=== PATIENT | male | born 1980 | race Caucasian/White ===

== ENCOUNTER 2018-06-19 09:48 | Inpatient (IN) | payer OTHER ==
[2018-06-19 10:37] VITALS: BMI 22.5
--- NOTE | 2018-06-19 10:39 | HP ---
COWS - Scale Resting Pulse: 0= [place] 80 or Below Sweatin= Chills/Flushing Restless Observation: 1= Difficult to Sit Still Pupil Size: 1= Pupils >than Normal Bone or Joint Aches: 2= Severe Diffuse Aches Runny Nose/ Eye Tearin= Runny Nose/Eyes GI Upset > 30mins: 2= Nausea/Diarrhea Tremor Observation: 2= Slight Tremor Visible Yawning Observation: 1= 1-2x During Session Anxiety or Irritability: 2=Irritable/Anxious Goose Flesh Skin: 0=Smooth Skin COWS Score: 14 CIWA Score - CIWA Score Nausea/Vomitin Muscle Tremors: 2 Anxiety: 2 Agitation: 2 Paroxysmal Sweats: 1-Minimal Palms Moist Orientation: 0-Oriented Tacttile Disturbances: 1-Very Mild Itch/Numbness Auditory Disturbances: 1-Very Mild Visual Disturbances: 1-Very Mild Sensitivity Headache: 2-Mild CIWA-Ar Total Score: 14 Admission ROS BHS - HPI Chief Complaint: i need help to stop using heroin and cocaine Allergies/Adverse Reactions: Allergies Allergy/AdvReac Type Severity Reaction Status Date / Time No Known Allergies Allergy Verified 06/19/18 10:35 History of Present Illness: this 38 years old male with heroin and cocaine dependence,seeking detox, withdrawal symptom,never been in detox before nicotine dependence longest period of sobriety 1 and a half year Exam Limitations: No Limitations - Ebola screening Have you traveled outside of the country in the last 21 days: No Have you had contact with anyone from an Ebola affected area: No Do you have a fever: No - Review of Systems Constitutional: Chills, Loss of Appetite, Malaise, Night Sweats, Changes in sleep, Weakness EENT: reports: Tearing, Nose Congestion Respiratory: reports: No Symptoms reported Cardiac: reports: No Symptoms Reported GI: reports: Diarrhea, Nausea, Vomiting, Abdominal cramping : reports: No Symptoms Reported Musculoskeletal: reports: Back Pain, Joint Pain, Muscle Pain, Joint Stiffness Integumentary: reports: Dryness Neuro: reports: Headache, Tremors Endocrine: reports: No Symptoms Reported Hematology: reports: No Symptoms Reported Psychiatric: reports: No Sypmtoms Reported, Judgement Intact, Mood/Affect Appropiate, Orientated x3 Patient History - Patient Medical History Hx Anemia: No Hx Asthma: No Hx Chronic Obstructive Pulmonary Disease (COPD): No Hx Cancer: No Hx Cardiac Disorders: No Hx Congestive Heart Failure: No Hx Hypertension: No Hx Hypercholesterolemia: No Hx Pacemaker: No HX Cerebrovascular Accident: No Hx Seizures: No Hx Dementia: No Hx Diabetes: No Hx Gastrointestinal Disorders: No Hx Liver Disease: No Hx Genitourinary Disorders: No Hx Sexually Transmitted Disorders: No Hx Renal Disease (ESRD): No Hx Thyroid Disease: No Hx Human Immunodeficiency Virus (HIV): No (2017 negative) Hx Hepatitis C: No Hx Depression: No Hx Suicide Attempt: No Hx Bipolar Disorder: No Hx Schizophrenia: No Other Medical History: no suicidal,no homical - Patient Surgical History Past Surgical History: No - PPD History Previous Implant?: Yes Documented Results: Negative w/o proof Implanted On Prior [facility] Admission?: No PPD to be Administered?: Yes - Smoking Cessation Smoking history: Current every day smoker Have you smoked in the past 12 months: Yes Cigars Per Day: 0 Hx Chewing Tobacco Use: No Initiated information on smoking cessation: Yes 'Breaking Loose' booklet given: 06/19/18 - Substance & Tx. History Hx Alcohol Use: No Hx Substance Use: Yes Substance Use Type: Cocaine, Heroin Hx Substance Use Treatment: No - Substances Abused Heroin Route: Inhalation Frequency: Daily Amount used: 5 bags Age of first use: 21 Date of Last Use: 06/18/18 Cocaine Route: Inhalation Frequency: Daily Amount used: 100$ Age of first use: 21 Date of Last Use: 06/15/18 Family Disease History - Family Disease History Family Disease History: Other: Sister (dsa) Admission Physical Exam BHS - Vital Signs Vital Signs: Vital Signs Temperature 96.4 F L 06/19/18 10:35 Pulse Rate 53 L 06/19/18 10:35 Respiratory Rate 16 06/19/18 10:35 Blood Pressure 123/78 06/19/18 10:35 O2 Sat by Pulse Oximetry (%) - Physical General Appearance: Yes: Moderate Distress, Tremorous, Irritable, Sweating, Anxious HEENTM: Yes: Normal ENT Inspection, JACKELIN, Pharynx Normal Respiratory: Yes: Within Normal Limits, Lungs Clear, Normal Breath Sounds Neck: Yes: Within Normal Limits, Supple, Trachea in good position Breast: Yes: Within Normal Limits Cardiology: Yes: Within Normal Limits, Regular Rhythm, Regular Rate, S1, S2 Abdominal: Yes: Normal Bowel Sounds, Non Tender, Soft Genitourinary: Yes: Within Normal Limits Back: Yes: Within Normal Limits, Muscle Spasm Musculoskeletal: Yes: Back pain, Joint Stiffness, Muscle Pain Extremities: Yes: Tremors Neurological: Yes: fuel quality tech II-XII NML intact, Fully Oriented, Alert, Motor Strength 5/5 Integumentary: Yes: Dry Lymphatic: Yes: Within Normal Limits - Diagnostic (1) Opioid dependence with withdrawal Current Visit: Yes Status: Acute (2) Cocaine dependence, uncomplicated Current Visit: Yes Status: Acute (3) Nicotine dependence Current Visit: Yes Status: Acute Cleared for Admission [facility] - Detox or Rehab [facility] Level of Care: Medically Managed Detox Regimen/Protocol: Methadone
[2018-06-19] MEDS ORDERED: IBUPROFEN 400 MG TABLET (FP) PO PRN (10:57)
[2018-06-19] MEDS ORDERED: LOPERAMIDE HCL 2 MG CAPSULE PO PRN (10:57)
[2018-06-19] MEDS ORDERED: P-EPHED 60MG/TRIPROLIDI 2.5MG TABLET PO PRN (10:57)
[2018-06-19] MEDS ORDERED: diazePAM 5 MG TABLET PO PRN (10:57)
[2018-06-19] MEDS ORDERED: MAG HYDROX/AL HYDROX/SIMETH 30 ML UNIT-DOSE CUP PO PRN (10:57)
[2018-06-19] MEDS ORDERED: guaiFENesin/D-METHORPHAN HB 10 ML UNIT-DOSE CUPS PO PRN (10:57)
[2018-06-19] MEDS ORDERED: MENTHOL/PHENOL 1 EACH UD MM PRN (10:57)
[2018-06-19] MEDS ORDERED: MAGNESIUM HYDROX 2400MG/30ML ORAL SUSPENSION 30 ML CUP PO PRN (10:57)
[2018-06-19] MEDS ORDERED: MAGNESIUM CITRATE 300 ML BOTTLE PO PRN (10:57)
[2018-06-19] MEDS ORDERED: ACETAMINOPHEN 325 MG TABLET (FP) PO PRN (10:57)
[2018-06-19] MEDS ORDERED: CYCLOBENZAPRINE HCL 10 MG TABLET (FP) PO PRN (10:59)
[2018-06-19] MEDS ORDERED: METHADONE HCL 10 MG TABLET (FOR DETOX USE ONLY) PO ONE ×2 (11:05→23:00)
[2018-06-19] MEDS: NICOTINE 21 MG/24 HOURS TOPICAL PATCH TD SCH (11:48)
[2018-06-19 20:40] LABS: URINE APPEARANCE CLEAR; URINE BILIRUBIN NEGATIVE (<2.0 mg/dL); URINE COLOR YELLOW; URINE GLUCOSE (UA) NEGATIVE (NEGATIVE); URINE KETONE NEGATIVE (NEGATIVE); URINE LEUK ESTERASE NEGATIVE (NEGATIVE); URINE NITRITE NEGATIVE (NEGATIVE); URINE PROTEIN NEGATIVE (NEGATIVE); URINE UROBILINOGEN NEGATIVE mg/dL (0.2-1.0)
[2018-06-19] MEDS ORDERED: MELATONIN 5 MG TABLETS PO PRN (22:00)
[2018-06-19] MEDS: cloNIDine HCL 0.1 MG TABLET PO SCH (22:04)
[2018-06-19] MEDS: THIAMINE HCL 100 MG TABLET (FP) PO SCH (22:04)
[2018-06-20] MEDS ORDERED: METHADONE HCL 10 MG TABLET (FOR DETOX USE ONLY) PO ONE (10:00)
[2018-06-20 10:16] LABS: HEMATOCRIT 48.5 % (35.4-49); HEMOGLOBIN 15.6 GM/dL (11.7-16.9); MCH 29.4 pg (25.7-33.7); MCHC 32.2 g/dl (32.0-35.9); MEAN CELL VOLUME 91.2 fl (80-96); PLATELET COUNT 210 K/MM3 (134-434); RBC 5.32 M/mm3 (4.00-5.60); RDW 13.3 % (11.9-15.9); WHITE BLOOD COUNT 6.8 K/mm3 (4.0-10.0)
--- NOTE | 2018-06-20 10:22 | PN ---
S Progress Note Note: addendum the ciwa score that documented on this patient on 06/18/18 at 10.33 is an error,belongs to other patient
[2018-06-20] MEDS: NICOTINE 21 MG/24 HOURS TOPICAL PATCH TD SCH (10:27)
[2018-06-20] MEDS: PRENATAL VITAMINS W/ FOLIC ACID TABLET (FP) PO SCH (10:27)
[2018-06-20] MEDS: cloNIDine HCL 0.1 MG TABLET PO SCH ×2 (10:28→22:10)
[2018-06-20 10:33] LABS: ALBUMIN 4.3 g/dl (3.4-5.0); ALK PHOS 70 U/L (45-117); ANION GAP 8 MMOL/L (8-16); BILIRUBIN,TOTAL 0.5 mg/dL (0.2-1); BLOOD UREA NITROGEN 16 mg/dL (7-18); CALCIUM 8.5 mg/dL (8.5-10.1); CHLORIDE 105 mmol/L (98-107); CO2 28 mmol/L (21-32); CREATININE 1.1 mg/dL (0.55-1.3); GLUCOSE,RANDOM 80 mg/dL (74-106); SGOT/AST 13 U/L (15-37); SGPT/ALT 29 U/L (13-61); SODIUM 141 mmol/L (136-145); TOT PROT 7.6 g/dl (6.4-8.2)
--- NOTE | 2018-06-20 11:20 | PN ---
[facility] CIWA - CIWA Score Nausea/Vomitin-No Nausea/No Vomiting Muscle Tremors: None Anxiety: 4-Mod. Anxious/Guarded Agitation: 4-Moderately Restless Paroxysmal Sweats: No Perspiration Orientation: 0-Oriented Tacttile Disturbances: 0-None Auditory Disturbances: 0-None Visual Disturbances: 0-None Headache: 0-None Present CIWA-Ar Total Score: 8 S COWS - Scale Resting Pulse: 0= [place] 80 or Below Sweatin=Flushed/Facial Moisture Restless Observation: 1= Difficult to Sit Still Pupil Size: 2= Moderately Dilated Bone or Joint Aches: 0= None Runny Nose/ Eye Tearin= None GI Upset > 30mins: 0= None Tremor Observation of Outstretched Hands: 0= None Yawning Observation: 0= None Anxiety or Irritability: 2=Irritable/Anxious Goose Flesh Skin: 0=Smooth Skin COWS Score: 7 S Progress Note (SOAP) Subjective: PATIENT ANXIOUS, PACING ON UNIT Objective: 06/20/18 11:18 Vital Signs Temperature 97.6 F 06/20/18 09:38 Pulse Rate 65 06/20/18 09:38 Respiratory Rate 18 06/20/18 09:38 Blood Pressure 100/66 06/20/18 09:38 O2 Sat by Pulse Oximetry (%) Laboratory Tests 06/19/18 06/20/18 06/20/18 19:30 05:45 05:45 WBC 6.8 RBC 5.32 Hgb 15.6 Hct 48.5 MCV 91.2 MCH 29.4 MCHC 32.2 RDW 13.3 Plt Count 210 MPV 11.0 Sodium 141 Potassium 4.0 Chloride 105 Carbon Dioxide 28 Anion Gap 8 BUN 16 Creatinine 1.1 Creat Clearance w eGFR > 60 Random Glucose 80 Calcium 8.5 Total Bilirubin 0.5 AST 13 L ALT 29 Alkaline Phosphatase 70 Total Protein 7.6 Albumin 4.3 Urine Color Yellow Urine Appearance Clear Urine pH 5.0 Ur Specific [place] 1.029 Urine Protein Negative Urine Glucose (UA) Negative Urine Ketones Negative Urine Blood Negative Urine Nitrite Negative Urine Bilirubin Negative Urine Urobilinogen Negative Ur Leukocyte Esterase Negative SKIN WARM, + FACIAL FLUSHING ALERT AND ORIENTED X 3 EXT NO EDEMA, FULL ROM ANXIOUS/GUARDED, +PACING ON UNIT Assessment: 06/20/18 11:20 WITHDRAWAL SX Plan: CONTINUE DETOX ENCOURAGE ORAL FLUIDS CONTINUE TO MONITOR CLINICALLY
--- NOTE | 2018-06-20 16:09 | EKG ---
Test Reason : Blood Pressure : / mmHG Vent. Rate : 057 BPM Atrial Rate : 057 BPM P-R Int : 124 ms QRS Dur : 106 ms QT Int : 444 ms P-R-T Axes : 005 067 045 degrees QTc Int : 432 ms SINUS BRADYCARDIA OTHERWISE NORMAL ECG NO PREVIOUS ECGS AVAILABLE Confirmed by MD ABELARDO, PRASANNA ([id number]) on 06/20/2018 4:09:14 PM Referred By: Confirmed By:PRASANNA ZHOU MD
[2018-06-20] MEDS: THIAMINE HCL 100 MG TABLET (FP) PO SCH (22:10)
[2018-06-21] MEDS ORDERED: METHADONE HCL 5 MG TABLET (FOR DETOX USE ONLY) PO ONE (10:00)
[2018-06-21] MEDS: PRENATAL VITAMINS W/ FOLIC ACID TABLET (FP) PO SCH (10:09)
[2018-06-21] MEDS: NICOTINE 21 MG/24 HOURS TOPICAL PATCH TD SCH (10:09)
[2018-06-21] MEDS: cloNIDine HCL 0.1 MG TABLET PO SCH ×2 (10:09→22:04)
[2018-06-21] MEDS: NICOTINE 14 MG/24 HOURS TOPICAL PATCH TD SCH (12:27)
--- NOTE | 2018-06-21 13:33 | PN ---
BHS COWS - Scale Resting Pulse: 0= [place] 80 or Below Sweatin= No chills or Flushing Restless Observation: 3= Extraneous Movement Pupil Size: 0= Normal to Room Light Bone or Joint Aches: 2= Severe Diffuse Aches Runny Nose/ Eye Tearin= Nasal Congestion GI Upset > 30mins: 1= Stomach Cramp Tremor Observation of Outstretched Hands: 2= Slight Tremor Visible Yawning Observation: 0= None Anxiety or Irritability: 2=Irritable/Anxious Goose Flesh Skin: 0=Smooth Skin COWS Score: 11 S Progress Note (SOAP) Subjective: Sweating, interrupted sleep Objective: 06/21/18 13:31 Last Vital Signs Temp Pulse Resp BP Pulse Ox 97.0 F L 71 18 105/71 06/21/18 13:30 06/21/18 13:30 06/21/18 13:30 06/21/18 13:30 Laboratory Tests 06/19/18 06/20/18 06/20/18 19:30 05:45 05:45 WBC 6.8 RBC 5.32 Hgb 15.6 Hct 48.5 MCV 91.2 MCH 29.4 MCHC 32.2 RDW 13.3 Plt Count 210 MPV 11.0 Sodium 141 Potassium 4.0 Chloride 105 Carbon Dioxide 28 Anion Gap 8 BUN 16 Creatinine 1.1 Creat Clearance w eGFR > 60 Random Glucose 80 Calcium 8.5 Total Bilirubin 0.5 AST 13 L ALT 29 Alkaline Phosphatase 70 Total Protein 7.6 Albumin 4.3 Urine Color Yellow Urine Appearance Clear Urine pH 5.0 Ur Specific [place] 1.029 Urine Protein Negative Urine Glucose (UA) Negative Urine Ketones Negative Urine Blood Negative Urine Nitrite Negative Urine Bilirubin Negative Urine Urobilinogen Negative Ur Leukocyte Esterase Negative RPR Titer 06/20/18 05:45 WBC RBC Hgb Hct MCV MCH MCHC RDW Plt Count MPV Sodium Potassium Chloride Carbon Dioxide Anion Gap BUN Creatinine Creat Clearance w eGFR Random Glucose Calcium Total Bilirubin AST ALT Alkaline Phosphatase Total Protein Albumin Urine Color Urine Appearance Urine pH Ur Specific [place] Urine Protein Urine Glucose (UA) Urine Ketones Urine Blood Urine Nitrite Urine Bilirubin Urine Urobilinogen Ur Leukocyte Esterase RPR Titer Nonreactive Labs reviewed Assessment: 06/21/18 13:33 Withdrawal symptoms Plan: Continue detox Encouraged PO water intake
[2018-06-21] MEDS: THIAMINE HCL 100 MG TABLET (FP) PO SCH (22:04)
[2018-06-22] MEDS ORDERED: METHADONE HCL 5 MG TABLET (FOR DETOX USE ONLY) PO ONE (10:00)
[2018-06-22] MEDS: PRENATAL VITAMINS W/ FOLIC ACID TABLET (FP) PO SCH (10:06)
[2018-06-22] MEDS: cloNIDine HCL 0.1 MG TABLET PO SCH ×2 (10:07→22:03)
[2018-06-22] MEDS: NICOTINE 14 MG/24 HOURS TOPICAL PATCH TD SCH (10:09)
--- NOTE | 2018-06-22 10:41 | PN ---
[facility] Progress Note Note: PATIENT CONTINUES WITH DETOX REGIMEN. PATIENT C/O INTERRUPTED SLEEP. PULLED BLANKET OVER FACE DURING EVALUATION. Laboratory Tests 06/19/18 06/20/18 06/20/18 19:30 05:45 05:45 WBC 6.8 RBC 5.32 Hgb 15.6 Hct 48.5 MCV 91.2 MCH 29.4 MCHC 32.2 RDW 13.3 Plt Count 210 MPV 11.0 Sodium 141 Potassium 4.0 Chloride 105 Carbon Dioxide 28 Anion Gap 8 BUN 16 Creatinine 1.1 Creat Clearance w eGFR > 60 Random Glucose 80 Calcium 8.5 Total Bilirubin 0.5 AST 13 L ALT 29 Alkaline Phosphatase 70 Total Protein 7.6 Albumin 4.3 Urine Color Yellow Urine Appearance Clear Urine pH 5.0 Ur Specific [place] 1.029 Urine Protein Negative Urine Glucose (UA) Negative Urine Ketones Negative Urine Blood Negative Urine Nitrite Negative Urine Bilirubin Negative Urine Urobilinogen Negative Ur Leukocyte Esterase Negative RPR Titer 06/20/18 05:45 WBC RBC Hgb Hct MCV MCH MCHC RDW Plt Count MPV Sodium Potassium Chloride Carbon Dioxide Anion Gap BUN Creatinine Creat Clearance w eGFR Random Glucose Calcium Total Bilirubin AST ALT Alkaline Phosphatase Total Protein Albumin Urine Color Urine Appearance Urine pH Ur Specific [place] Urine Protein Urine Glucose (UA) Urine Ketones Urine Blood Urine Nitrite Urine Bilirubin Urine Urobilinogen Ur Leukocyte Esterase RPR Titer Nonreactive Vital Signs Temperature 98.5 F 06/22/18 09:17 Pulse Rate 63 06/22/18 09:17 Respiratory Rate 18 06/22/18 09:17 Blood Pressure 105/68 06/22/18 09:17 O2 Sat by Pulse Oximetry (%) ALERT AND ORIENTED X 3 AMB AD [place] IRRITABLE AND GUARDED A/P WITHDRAWAL SX CONTINUE DETOX ORDERED ENCOURAGE ORAL FLUIDS CONTINUE TO MONITOR CLINICALLY
[2018-06-22] MEDS: THIAMINE HCL 100 MG TABLET (FP) PO SCH (22:01)
[2018-06-23] MEDS: cloNIDine HCL 0.1 MG TABLET PO SCH ×2 (09:32→22:30)
[2018-06-23] MEDS: PRENATAL VITAMINS W/ FOLIC ACID TABLET (FP) PO SCH (09:32)
[2018-06-23] MEDS ORDERED: METHADONE HCL 10 MG TABLET (FOR DETOX USE ONLY) PO ONE (10:00)
[2018-06-23] MEDS: NICOTINE 14 MG/24 HOURS TOPICAL PATCH TD SCH (10:01)
--- NOTE | 2018-06-23 12:04 | PN ---
BHS Progress Note (SOAP) Subjective: Interrupted sleep Objective: 06/23/18 12:02 Last Vital Signs Temp Pulse Resp BP Pulse Ox 97.1 F L 62 19 109/67 06/23/18 09:36 06/23/18 09:36 06/23/18 09:36 06/23/18 09:36 Laboratory Tests 06/19/18 06/20/18 06/20/18 19:30 05:45 05:45 WBC 6.8 RBC 5.32 Hgb 15.6 Hct 48.5 MCV 91.2 MCH 29.4 MCHC 32.2 RDW 13.3 Plt Count 210 MPV 11.0 Sodium 141 Potassium 4.0 Chloride 105 Carbon Dioxide 28 Anion Gap 8 BUN 16 Creatinine 1.1 Creat Clearance w eGFR > 60 Random Glucose 80 Calcium 8.5 Total Bilirubin 0.5 AST 13 L ALT 29 Alkaline Phosphatase 70 Total Protein 7.6 Albumin 4.3 Urine Color Yellow Urine Appearance Clear Urine pH 5.0 Ur Specific [place] 1.029 Urine Protein Negative Urine Glucose (UA) Negative Urine Ketones Negative Urine Blood Negative Urine Nitrite Negative Urine Bilirubin Negative Urine Urobilinogen Negative Ur Leukocyte Esterase Negative RPR Titer 06/20/18 05:45 WBC RBC Hgb Hct MCV MCH MCHC RDW Plt Count MPV Sodium Potassium Chloride Carbon Dioxide Anion Gap BUN Creatinine Creat Clearance w eGFR Random Glucose Calcium Total Bilirubin AST ALT Alkaline Phosphatase Total Protein Albumin Urine Color Urine Appearance Urine pH Ur Specific [place] Urine Protein Urine Glucose (UA) Urine Ketones Urine Blood Urine Nitrite Urine Bilirubin Urine Urobilinogen Ur Leukocyte Esterase RPR Titer Nonreactive Labs reviewed Assessment: 06/23/18 12:03 Withdrawal symptoms Plan: Continue detox Encouraged PO water intake
[2018-06-23] MEDS ORDERED: hydrOXYzine HCL 25 MG TABLET (FP) PO PRN (13:04)
[2018-06-23] MEDS: THIAMINE HCL 100 MG TABLET (FP) PO SCH (22:30)
[2018-06-24] MEDS ORDERED: METHADONE HCL 5 MG TABLET (FOR DETOX USE ONLY) PO ONE (06:00)
[2018-06-24 06:14] VITALS: BP 99/57; PULSE 63; TEMP 97.1
--- NOTE | 2018-06-24 11:06 | DS ---
[facility] Detox Discharge Summary Admission Date: 06/19/18 Discharge Date: 06/24/18 - History Present History: Cocaine Dependence, Opioid Dependence - Physical Exam Results Vital Signs: Vital Signs Temperature 97.1 F L 06/24/18 06:13 Pulse Rate 63 06/24/18 06:13 Respiratory Rate 18 06/24/18 06:30 Blood Pressure 99/57 L 06/24/18 06:13 O2 Sat by Pulse Oximetry (%) - Treatment Hospital Course: Detox Protocol Followed, Detoxed Safely, Responded well, Discharged Condition Good, Rehab Referral Accepted Patient has Accepted a Rehab Referral to: [facility] - Diagnosis (1) Opioid dependence with withdrawal Status: Acute (2) Cocaine dependence, uncomplicated Status: Chronic (3) Nicotine dependence Status: Chronic Qualifiers: Nicotine product type: cigarettes - AMA Did Patient Leave Against Medical Advice: No
== END 2018-06-24 09:06 | disposition home or self-care (01) | DRG 773 ==
LOC: YASAS 09:48 → EDBD 09:48 → Y3N 11:01
PROC: HZ2ZZZZ Detoxification Services for Substance Abuse Treatment (ICD-10-PCS; principal; 2018-06-19)
DX: F11.23 Opioid dependence with withdrawal (principal); F14.20 Cocaine dependence, uncomplicated; F17.210 Nicotine dependence, cigarettes, uncomplicated
CPT/HCPCS: 36415; 80053; 81003; 85027; 86593; 93005; 93010; J0735

== ENCOUNTER 2018-09-22 14:45 | Inpatient (IN) | payer OTHER ==
[2018-09-22 15:33] VITALS: BMI 24.4
--- NOTE | 2018-09-22 18:43 | HP ---
COWS - Scale Resting Pulse: 1= [place] 81-100 Sweatin= Chills/Flushing Restless Observation: 3= Extraneous Movement Pupil Size: 1= Pupils >than Normal Bone or Joint Aches: 1= Mild Discomfort Runny Nose/ Eye Tearin= Nasal Congestion GI Upset > 30mins: 1= Stomach Cramp Tremor Observation: 0= None Yawning Observation: 1= 1-2x During Session Anxiety or Irritability: 1=Feels Anxious/Irritable Goose Flesh Skin: 3=Piloerection COWS Score: 14 CIWA Score - Admission Criteria [facility] Guidelines: Admission for Medically Managed Detox: Requires at least one of the followin. CIWA greater than 12 2. Seizures within the past 24 hours 3. Delirium tremens within the past 24 hours 4. Hallucinations within the past 24 hours 5. Acute intervention needed for co occurring medical disorder 6. Acute intervention needed for co occurring psychiatric disorder 7. Severe withdrawal that cannot be handled at a lower level of care (continued vomiting, continued diarrhea, abnormal vital signs) requiring intravenous medication and/or fluids 8. Admission ROS S - HPI Chief Complaint: heroin detox 38 yo with no medical or mental problems here for detox from heroin. heroin- 5-6 bags/day, sniffing, last here 3 months- relapsed after a month smoking 1 ppd ISTOP- neg for controlled substances Utox: Fen, Mop Allergies/Adverse Reactions: Allergies Allergy/AdvReac Type Severity Reaction Status Date / Time No Known Allergies Allergy Verified 09/22/18 17:24 - Ebola screening Have you traveled outside of the country in the last 21 days: No Have you been sick,other than usual withdrawal symptoms: No Do you have a fever: No - Review of Systems Constitutional: No Symptoms Reported EENT: reports: No Symptoms Reported Respiratory: reports: No Symptoms reported Cardiac: reports: No Symptoms Reported GI: reports: No Symptoms Reported : reports: No Symptoms Reported Musculoskeletal: reports: No Symptoms Reported Integumentary: reports: No Symptoms Reported Neuro: reports: No Symptoms reported Endocrine: reports: No Symptoms Reported Hematology: reports: No Symptoms Reported Psychiatric: reports: No Sypmtoms Reported Other Systems: Reviewed and Negative Patient History - Patient Medical History Hx Anemia: No Hx Asthma: No Hx Chronic Obstructive Pulmonary Disease (COPD): No Hx Cancer: No Hx Cardiac Disorders: No Hx Congestive Heart Failure: No Hx Hypertension: No Hx Hypercholesterolemia: No Hx Pacemaker: No HX Cerebrovascular Accident: No Hx Seizures: No Hx Dementia: No Hx Diabetes: No Hx Gastrointestinal Disorders: No Hx Liver Disease: No Hx Genitourinary Disorders: No Hx Sexually Transmitted Disorders: No Hx Renal Disease (ESRD): No Hx Thyroid Disease: No Hx Human Immunodeficiency Virus (HIV): No (2017 negative) Hx Hepatitis C: No Hx Depression: No Hx Suicide Attempt: No Hx Bipolar Disorder: No Hx Schizophrenia: No - Patient Surgical History Past Surgical History: No Hx Neurologic Surgery: No Hx Cataract Extraction: No Hx Cardiac Surgery: No Hx Lung Surgery: No Hx Breast Surgery: No Hx Breast Biopsy: No Hx Abdominal Surgery: No Hx Appendectomy: No Hx Cholecystectomy: No Hx Genitourinary Surgery: No Hx Section: No Hx Orthopedic Surgery: No Other Surgical History: deviated septum repair 2014, tubal ottotic drainage 2014 Anesthesia Reaction: No - PPD History Previous Implant?: Yes Documented Results: Negative w/proof Implanted On Prior [facility] Admission?: Yes Date: 06/21/18 Results: 0 mm - Smoking Cessation Smoking history: Current every day smoker Have you smoked in the past 12 months: Yes Aproximately how many cigarettes per day: 20 Cigars Per Day: 0 Hx Chewing Tobacco Use: No Initiated information on smoking cessation: Yes 'Breaking Loose' booklet given: 09/22/18 - Substance & Tx. History Hx Alcohol Use: No Hx Substance Use: Yes Substance Use Type: Heroin Hx Substance Use Treatment: Yes - Substances Abused Heroin Route: Inhalation Frequency: Daily Amount used: 5-6 bags Age of first use: 21 Date of Last Use: 09/21/18 Family Disease History - Family Disease History Family Disease History: Other: Father (alcohol, crack), Sister (heroin use) Admission Physical Exam BHS - Vital Signs Vital Signs: Vital Signs - 24 hr 09/22/18 14:59 Temperature 96.0 F L Pulse Rate 67 Respiratory 18 Rate Blood Pressure 126/84 - Physical General Appearance: Yes: Within Normal Limits, No Apparent Distress, Nourished, Appropriately Dressed HEENTM: Yes: Within Normal Limits Respiratory: Yes: Within Normal Limits Neck: Yes: Within Normal Limits Cardiology: Yes: Within Normal Limits Abdominal: Yes: Within Normal Limits Back: Yes: Within Normal Limits Musculoskeletal: Yes: Within Normal Limits Extremities: Yes: Within Normal Limits Neurological: Yes: Within Normal Limits Integumentary: Yes: Within Normal Limits Lymphatic: Yes: Within Normal Limits - Diagnostic (1) Opioid dependence with withdrawal Current Visit: No Status: Acute (2) Nicotine dependence Current Visit: No Status: Chronic Qualifiers: Nicotine product type: cigarettes BHS Breath Alcohol Content Breath Alcohol Content: 0 Urine Drug Screen - Results Drug Screen Negative: No Urine Drug Screen Results: OPI-Opiates, FEN-Fentanyl
[2018-09-22] MEDS ORDERED: MAG HYDROX/AL HYDROX/SIMETH 30 ML UNIT-DOSE CUP PO PRN (18:44)
[2018-09-22] MEDS ORDERED: P-EPHED 60MG/TRIPROLIDI 2.5MG TABLET PO PRN (18:44)
[2018-09-22] MEDS ORDERED: LOPERAMIDE HCL 2 MG CAPSULE PO PRN (18:44)
[2018-09-22] MEDS ORDERED: MAGNESIUM CITRATE 300 ML BOTTLE PO PRN (18:44)
[2018-09-22] MEDS ORDERED: IBUPROFEN 400 MG TABLET (FP) PO PRN (18:44)
[2018-09-22] MEDS ORDERED: MAGNESIUM HYDROX 2400MG/30ML ORAL SUSPENSION 30 ML CUP PO PRN (18:44)
[2018-09-22] MEDS ORDERED: ACETAMINOPHEN 325 MG TABLET (FP) PO PRN (18:44)
[2018-09-22] MEDS ORDERED: guaiFENesin/D-METHORPHAN HB 10 ML UNIT-DOSE CUPS PO PRN (18:44)
[2018-09-22] MEDS ORDERED: MENTHOL/PHENOL 1 EACH UD MM PRN (18:44)
[2018-09-22] MEDS ORDERED: METHADONE HCL 10 MG TABLET (FOR DETOX USE ONLY) PO ONE ×2 (20:00→23:00)
[2018-09-22] MEDS: THIAMINE HCL 100 MG TABLET (FP) PO SCH (22:08)
[2018-09-22] MEDS: diazePAM 5 MG TABLET PO PRN (22:30)
[2018-09-23] MEDS ORDERED: METHADONE HCL 10 MG TABLET (FOR DETOX USE ONLY) PO ONE (10:00)
[2018-09-23] MEDS: PRENATAL VITAMINS W/ FOLIC ACID TABLET (FP) PO SCH (10:13)
[2018-09-23] MEDS: diazePAM 5 MG TABLET PO PRN ×2 (10:13→21:02)
[2018-09-23] MEDS: NICOTINE 14 MG/24 HOURS TOPICAL PATCH TD SCH (10:14)
[2018-09-23] MEDS: cloNIDine HCL 0.1 MG TABLET PO PRN (10:14)
[2018-09-23 10:34] LABS: HEMATOCRIT 43.6 % (35.4-49); HEMOGLOBIN 14.6 GM/dL (11.7-16.9); MCH 30.2 pg (25.7-33.7); MCHC 33.4 g/dl (32.0-35.9); MEAN CELL VOLUME 90.5 fl (80-96); MEAN PLT VOLUME 10.2 fl (7.5-11.1); PLATELET COUNT 216 K/MM3 (134-434); RBC 4.82 M/mm3 (4.00-5.60); RDW 13.5 % (11.9-15.9); WHITE BLOOD COUNT 5.7 K/mm3 (4.0-10.0)
[2018-09-23 11:12] LABS: ALBUMIN 4.1 g/dl (3.4-5.0); ALK PHOS 63 U/L (45-117); ANION GAP 7 MMOL/L (8-16); BILIRUBIN,TOTAL 0.7 mg/dL (0.2-1); BLOOD UREA NITROGEN 14 mg/dL (7-18); CHLORIDE 104 mmol/L (98-107); CO2 30 mmol/L (21-32); GLUCOSE,RANDOM 75 mg/dL (74-106); POTASSIUM 4.2 mmol/L (3.5-5.1); SGOT/AST 12 U/L (15-37); SGPT/ALT 26 U/L (13-61); SODIUM 141 mmol/L (136-145)
[2018-09-23 13:16] LABS: URINE APPEARANCE CLEAR; URINE BILIRUBIN NEGATIVE (<2.0 mg/dL); URINE COLOR YELLOW; URINE GLUCOSE (UA) NEGATIVE (NEGATIVE); URINE KETONE NEGATIVE (NEGATIVE); URINE LEUK ESTERASE NEGATIVE (NEGATIVE); URINE NITRITE NEGATIVE (NEGATIVE); URINE PROTEIN NEGATIVE (NEGATIVE); URINE UROBILINOGEN NEGATIVE mg/dL (0.2-1.0)
--- NOTE | 2018-09-23 13:59 | PN ---
BHS COWS - Scale Resting Pulse: 0= [place] 80 or Below Sweatin=Flushed/Facial Moisture Restless Observation: 1= Difficult to Sit Still Pupil Size: 0= Normal to Room Light Bone or Joint Aches: 2= Severe Diffuse Aches Runny Nose/ Eye Tearin= Runny Nose/Eyes GI Upset > 30mins: 2= Nausea/Diarrhea Tremor Observation of Outstretched Hands: 2= Slight Tremor Visible Yawning Observation: 0= None Anxiety or Irritability: 2=Irritable/Anxious Goose Flesh Skin: 0=Smooth Skin COWS Score: 13 BHS Progress Note (SOAP) Subjective: Anxiety, irritability, interrupted sleep Objective: 09/23/18 13:58 Vital Signs 09/23/18 09/23/18 06:51 09:29 Temperature 97.5 F L 96.3 F L Pulse Rate 60 77 Respiratory 18 18 Rate Blood Pressure 102/51 L 109/59 L Laboratory Last Values WBC 5.7 K/mm3 (4.0-10.0) 09/23/18 08:00 RBC 4.82 M/mm3 (4.00-5.60) 09/23/18 08:00 Hgb 14.6 GM/dL (11.7-16.9) 09/23/18 08:00 Hct 43.6 % (35.4-49) 09/23/18 08:00 MCV 90.5 fl (80-96) 09/23/18 08:00 MCH 30.2 pg (25.7-33.7) 09/23/18 08:00 MCHC 33.4 g/dl (32.0-35.9) 09/23/18 08:00 RDW 13.5 % (11.9-15.9) 09/23/18 08:00 Plt Count 216 K/MM3 (134-434) 09/23/18 08:00 MPV 10.2 fl (7.5-11.1) 09/23/18 08:00 Sodium 141 mmol/L (136-145) 09/23/18 08:00 Potassium 4.2 mmol/L (3.5-5.1) 09/23/18 08:00 Chloride 104 mmol/L (98-107) 09/23/18 08:00 Carbon Dioxide 30 mmol/L (21-32) 09/23/18 08:00 Anion Gap 7 MMOL/L (8-16) L 09/23/18 08:00 BUN 14 mg/dL (7-18) 09/23/18 08:00 Creatinine 1.0 mg/dL (0.55-1.3) 09/23/18 08:00 Creat Clearance w eGFR > 60 (>60) 09/23/18 08:00 Random Glucose 75 mg/dL (74-106) 09/23/18 08:00 Calcium 9.0 mg/dL (8.5-10.1) 09/23/18 08:00 Total Bilirubin 0.7 mg/dL (0.2-1) 09/23/18 08:00 AST 12 U/L (15-37) L 09/23/18 08:00 ALT 26 U/L (13-61) 09/23/18 08:00 Alkaline Phosphatase 63 U/L (45-117) 09/23/18 08:00 Total Protein 7.0 g/dl (6.4-8.2) 09/23/18 08:00 Albumin 4.1 g/dl (3.4-5.0) 09/23/18 08:00 Urine Color Yellow 09/23/18 09:20 Urine Appearance Clear 09/23/18 09:20 Urine pH 7.0 (5.0-8.0) D 09/23/18 09:20 Ur Specific [place] 1.023 (1.010-1.035) 09/23/18 09:20 Urine Protein Negative (NEGATIVE) 09/23/18 09:20 Urine Glucose (UA) Negative (NEGATIVE) 09/23/18 09:20 Urine Ketones Negative (NEGATIVE) 09/23/18 09:20 Urine Blood Negative (NEGATIVE) 09/23/18 09:20 Urine Nitrite Negative (NEGATIVE) 09/23/18 09:20 Urine Bilirubin Negative (<2.0 mg/dL) 09/23/18 09:20 Urine Urobilinogen Negative mg/dL (0.2-1.0) 09/23/18 09:20 Ur Leukocyte Esterase Negative (NEGATIVE) 09/23/18 09:20 Labs noted Assessment: 09/23/18 13:59 Withdrawal sx Plan: Continue detox
[2018-09-23] MEDS: hydrOXYzine PAMOATE 50 MG CAPSULE (FP) PO PRN (22:20)
[2018-09-23] MEDS: MELATONIN 5 MG TABLETS PO PRN (22:20)
[2018-09-23] MEDS: THIAMINE HCL 100 MG TABLET (FP) PO SCH (22:20)
[2018-09-24] MEDS ORDERED: METHADONE HCL 5 MG TABLET (FOR DETOX USE ONLY) PO ONE (10:00)
[2018-09-24] MEDS: cloNIDine HCL 0.1 MG TABLET PO PRN (10:04)
[2018-09-24] MEDS: diazePAM 5 MG TABLET PO PRN ×3 (10:04→22:45)
[2018-09-24] MEDS: PRENATAL VITAMINS W/ FOLIC ACID TABLET (FP) PO SCH (10:04)
[2018-09-24] MEDS: NICOTINE 14 MG/24 HOURS TOPICAL PATCH TD SCH (10:05)
--- NOTE | 2018-09-24 12:41 | PN ---
BHS COWS - Scale Resting Pulse: 1= [place] 81-100 Sweatin= No chills or Flushing Restless Observation: 0= Sits Still Pupil Size: 0= Normal to Room Light Bone or Joint Aches: 1= Mild Discomfort Runny Nose/ Eye Tearin= None GI Upset > 30mins: 1= Stomach Cramp Tremor Observation of Outstretched Hands: 0= None Yawning Observation: 0= None Anxiety or Irritability: 1=Feels Anxious/Irritable Goose Flesh Skin: 0=Smooth Skin COWS Score: 4 BHS Progress Note (SOAP) Subjective: pt states feeling fine today- medications are fine O: Vital Signs - 24 hr 09/23/18 09/23/18 09/23/18 13:59 17:44 22:23 Temperature 97.7 F 97.5 F L 97.6 F Pulse Rate 64 72 65 Respiratory 18 20 18 Rate Blood Pressure 96/56 L 95/63 105/59 L 09/24/18 09/24/18 09/24/18 00:30 03:30 07:27 Temperature 97.9 F Pulse Rate 62 Respiratory 18 16 18 Rate Blood Pressure 104/43 L 09/24/18 09:38 Temperature 97.7 F Pulse Rate 74 Respiratory 16 Rate Blood Pressure 134/84 Laboratory Tests 09/23/18 09/23/18 09/23/18 08:00 08:00 08:00 WBC 5.7 RBC 4.82 Hgb 14.6 Hct 43.6 MCV 90.5 MCH 30.2 MCHC 33.4 RDW 13.5 Plt Count 216 MPV 10.2 Sodium 141 Potassium 4.2 Chloride 104 Carbon Dioxide 30 Anion Gap 7 L BUN 14 Creatinine 1.0 Creat Clearance w eGFR > 60 Random Glucose 75 Calcium 9.0 Total Bilirubin 0.7 AST 12 L ALT 26 Alkaline Phosphatase 63 Total Protein 7.0 Albumin 4.1 Urine Color Urine Appearance Urine pH Ur Specific [place] Urine Protein Urine Glucose (UA) Urine Ketones Urine Blood Urine Nitrite Urine Bilirubin Urine Urobilinogen Ur Leukocyte Esterase RPR Titer Nonreactive 09/23/18 09:20 WBC RBC Hgb Hct MCV MCH MCHC RDW Plt Count MPV Sodium Potassium Chloride Carbon Dioxide Anion Gap BUN Creatinine Creat Clearance w eGFR Random Glucose Calcium Total Bilirubin AST ALT Alkaline Phosphatase Total Protein Albumin Urine Color Yellow Urine Appearance Clear Urine pH 7.0 D Ur Specific [place] 1.023 Urine Protein Negative Urine Glucose (UA) Negative Urine Ketones Negative Urine Blood Negative Urine Nitrite Negative Urine Bilirubin Negative Urine Urobilinogen Negative Ur Leukocyte Esterase Negative RPR Titer a/p: continue opioid detox protocol- pt tolerating well. d/w pt options for longterm Rx.
[2018-09-24] MEDS: THIAMINE HCL 100 MG TABLET (FP) PO SCH (22:45)
[2018-09-24] MEDS: hydrOXYzine PAMOATE 50 MG CAPSULE (FP) PO PRN (22:45)
[2018-09-25] MEDS ORDERED: METHADONE HCL 5 MG TABLET (FOR DETOX USE ONLY) PO ONE (10:00)
[2018-09-25] MEDS: PRENATAL VITAMINS W/ FOLIC ACID TABLET (FP) PO SCH (10:04)
[2018-09-25] MEDS: NICOTINE 14 MG/24 HOURS TOPICAL PATCH TD SCH (10:04)
[2018-09-25] MEDS ORDERED: SODIUM CHLORIDE NASAL SPRAY 44 ML BOTTLE NS PRN (10:20)
--- NOTE | 2018-09-25 10:20 | PN ---
BHS Progress Note (SOAP) Subjective: sweats nasal congestion irritable headache Objective: 09/25/18 10:19 Vital Signs Temperature 97.9 F 09/25/18 09:14 Pulse Rate 115 H 09/25/18 09:14 Respiratory Rate 18 09/25/18 09:14 Blood Pressure 130/74 09/25/18 09:14 O2 Sat by Pulse Oximetry (%) aaox3 ambulating no acute distress Assessment: 09/25/18 10:19 withdrawal sx Plan: continue detox increase fluids ocean spray prn motrin/tylenol prn
[2018-09-25] MEDS: MELATONIN 5 MG TABLETS PO PRN (21:15)
[2018-09-25] MEDS: THIAMINE HCL 100 MG TABLET (FP) PO SCH (21:15)
[2018-09-25] MEDS: hydrOXYzine PAMOATE 50 MG CAPSULE (FP) PO PRN (21:16)
[2018-09-26 06:14] VITALS: TEMP 97.7
[2018-09-26 09:23] VITALS: BP 105/64; PULSE 72
[2018-09-26] MEDS ORDERED: METHADONE HCL 10 MG TABLET (FOR DETOX USE ONLY) PO ONE (10:00)
[2018-09-26] MEDS: PRENATAL VITAMINS W/ FOLIC ACID TABLET (FP) PO SCH (10:07)
[2018-09-26] MEDS: NICOTINE 14 MG/24 HOURS TOPICAL PATCH TD SCH (10:08)
--- NOTE | 2018-09-26 11:02 | PN ---
BHS Progress Note (SOAP) Subjective: cough feeling better Objective: 09/26/18 11:01 Vital Signs Temperature 97.7 F 09/26/18 09:23 Pulse Rate 72 09/26/18 09:23 Respiratory Rate 18 09/26/18 09:23 Blood Pressure 105/64 09/26/18 09:23 O2 Sat by Pulse Oximetry (%) aaox3 ambulating no acute distress Assessment: 09/26/18 11:01 mild withdrawal sx Plan: continue detox robitussin prn d/c in am
--- NOTE | 2018-09-26 11:55 | PN ---
BHS Progress Note Note: pt states he feeling no s/s of withdrawals pt states he feels fine and going home. pt was assessed no s/s withdrawals noted. d/c as per pt request
--- NOTE | 2018-09-26 11:56 | DS ---
[facility] Detox Discharge Summary Admission Date: 09/22/18 Discharge Date: 09/26/18 - History Present History: Cocaine Dependence, Opioid Dependence - Physical Exam Results Vital Signs: Vital Signs Temperature 97.7 F 09/26/18 09:23 Pulse Rate 72 09/26/18 09:23 Respiratory Rate 18 09/26/18 09:23 Blood Pressure 105/64 09/26/18 09:23 O2 Sat by Pulse Oximetry (%) - Treatment Hospital Course: Detox Protocol Followed, Detoxed Safely, Responded well, Discharged Condition Good, Rehab Referral Accepted - Medication Discharge Medications: Ambulatory Orders NK [No Known Home Medication] 09/22/18 - Diagnosis (1) Opioid dependence with withdrawal Current Visit: Yes Status: Chronic (2) Cocaine dependence, uncomplicated Current Visit: Yes Status: Chronic (3) Nicotine dependence Current Visit: Yes Status: Chronic Qualifiers: Nicotine product type: cigarettes Substance use status: uncomplicated Qualified Code(s): F17.210 - Nicotine dependence, cigarettes, uncomplicated - AMA Did Patient Leave Against Medical Advice: No (going home. pt states is being p/ u by family)
[2018-09-27] MEDS ORDERED: METHADONE HCL 5 MG TABLET (FOR DETOX USE ONLY) PO ONE (06:00)
== END 2018-09-26 12:02 | disposition home or self-care (01) | DRG 773 ==
LOC: YASAS 14:45 → Y6N 19:47
PROVIDERS: ADMIT Neuromusculoskeletal Medicine & OMM; ATTEND Neuromusculoskeletal Medicine & OMM
PROC: HZ2ZZZZ Detoxification Services for Substance Abuse Treatment (ICD-10-PCS; principal; 2018-09-22)
DX: F11.23 Opioid dependence with withdrawal (principal); F12.20 Cannabis dependence, uncomplicated; F17.210 Nicotine dependence, cigarettes, uncomplicated
CPT/HCPCS: 36415; 80053; 81003; 85027; 86593; J0735

== ENCOUNTER 2018-10-28 09:24 | Inpatient (IN) | payer OTHER ==
[2018-10-28 11:01] VITALS: BMI 24.0
--- NOTE | 2018-10-28 12:20 | HP ---
COWS - Scale Resting Pulse: 0= [place] 80 or Below Sweatin= Chills/Flushing Restless Observation: 1= Difficult to Sit Still Pupil Size: 0= Normal to Room Light Bone or Joint Aches: 2= Severe Diffuse Aches Runny Nose/ Eye Tearin= Runny Nose/Eyes GI Upset > 30mins: 2= Nausea/Diarrhea Tremor Observation: 2= Slight Tremor Visible Yawning Observation: 1= 1-2x During Session Anxiety or Irritability: 2=Irritable/Anxious Goose Flesh Skin: 0=Smooth Skin COWS Score: 13 Admission ROS S - HPI Chief Complaint: I'm tired of living for my next fix, the phone call telling me I can get what I need to feel better, I'm tired of feeling like I've got the flu all the time Allergies/Adverse Reactions: Allergies Allergy/AdvReac Type Severity Reaction Status Date / Time No Known Allergies Allergy Verified 10/28/18 12:32 History of Present Illness: 38 yo gentleman here for detox from opiates - urine tox + bzo but states he just used xanax recently to help his withdrawal when he couldn't get heroin. Denies seizure but has had overdose. Encouraged patient to follow up with MAT Exam Limitations: Clinical Condition - Ebola screening Have you traveled outside of the country in the last 21 days: No (N) Have you had contact with anyone from an Ebola affected area: No Have you been sick,other than usual withdrawal symptoms: No Do you have a fever: No - Review of Systems Constitutional: Chills, Loss of Appetite, Malaise, Changes in sleep, Weakness, Unintentional Wgt. Loss EENT: reports: Tearing, Nose Congestion Respiratory: reports: No Symptoms reported Cardiac: reports: No Symptoms Reported GI: reports: Nausea, Poor Appetite, Abdominal cramping : reports: Dysuria Musculoskeletal: reports: Back Pain, Muscle Pain Integumentary: reports: No Symptoms Reported Neuro: reports: Headache, Tremors Endocrine: reports: No Symptoms Reported Hematology: reports: No Symptoms Reported Psychiatric: reports: Judgement Intact, Mood/Affect Appropiate, Orientated x3, Anxious Other Systems: Reviewed and Negative Patient History - Patient Medical History Hx Anemia: No Hx Asthma: No Hx Chronic Obstructive Pulmonary Disease (COPD): No Hx Cancer: No Hx Cardiac Disorders: No Hx Congestive Heart Failure: No Hx Hypertension: No Hx Hypercholesterolemia: No Hx Pacemaker: No HX Cerebrovascular Accident: No Hx Seizures: No Hx Dementia: No Hx Diabetes: No Hx Gastrointestinal Disorders: No Hx Liver Disease: No Hx Genitourinary Disorders: No Hx Sexually Transmitted Disorders: No Hx Renal Disease (ESRD): No Hx Thyroid Disease: No Hx Human Immunodeficiency Virus (HIV): No (2017 negative) Hx Hepatitis C: No Hx Depression: No Hx Suicide Attempt: No Hx Bipolar Disorder: No Hx Schizophrenia: No - Patient Surgical History Past Surgical History: No Hx Neurologic Surgery: No Hx Cataract Extraction: No Hx Cardiac Surgery: No Hx Lung Surgery: No Hx Breast Surgery: No Hx Breast Biopsy: No Hx Abdominal Surgery: No Hx Appendectomy: No Hx Cholecystectomy: No Hx Genitourinary Surgery: No Hx Section: No Hx Orthopedic Surgery: No Other Surgical History: deviated septum repair 2014, tubal ottotic drainage 2014 Anesthesia Reaction: No - PPD History Previous Implant?: Yes Documented Results: Negative w/proof Implanted On Prior [facility] Admission?: Yes Date: 06/21/18 Results: 0 mm PPD to be Administered?: No - Reproductive History Patient is a Female of Child Bearing Age (11 -55 yrs old): No (male) - Smoking Cessation Smoking history: Current every day smoker Have you smoked in the past 12 months: Yes Aproximately how many cigarettes per day: 20 Cigars Per Day: 0 Hx Chewing Tobacco Use: No Initiated information on smoking cessation: Yes 'Breaking Loose' booklet given: 10/28/18 (give on floor) - Substance & Tx. History Hx Alcohol Use: No Hx Substance Use: Yes Substance Use Type: Heroin, Tranquilizers Hx Substance Use Treatment: Yes (detox) - Substances Abused heroin Route: Inhalation Frequency: Daily Amount used: 10 bags Age of first use: 37 Date of Last Use: 10/27/18 xanax Frequency: 1-3 times last 30 days Amount used: 1 4mg bar Age of first use: 38 Date of Last Use: 10/28/18 Family Disease History - Family Disease History Family Disease History: Other: Father (living, alcohol, crack), Mother (living - healthy), Brother (two - healthy), Sister (six - one uses heroin ), Daughter ( one age 17 - healthy) Admission Physical Exam BHS - Vital Signs Vital Signs: Vital Signs - 24 hr 10/28/18 10:59 Temperature 97.9 F Pulse Rate 71 Respiratory 20 Rate Blood Pressure 139/91 - Physical General Appearance: Yes: Nourished, Appropriately Dressed, Moderate Distress, Tremorous, Irritable, Anxious HEENTM: Yes: EOMI, Hearing grossly Normal, Normocephalic, Normal Voice, Hearing Decreased, Nasal Congestion Respiratory: Yes: Normal Breath Sounds, No Respiratory Distress Neck: Yes: No masses,lesions,Nodules Breast: Yes: Breast Exam Deferred Cardiology: Yes: Regular Rhythm, Regular Rate Abdominal: Yes: Flat, Soft Genitourinary: Yes: Hesitency Back: Yes: Normal Inspection Musculoskeletal: Yes: full range of Motion, Gait Steady, Back pain, Muscle Pain Extremities: Yes: Normal Inspection, Normal Range of Motion, Non-Tender Neurological: Yes: Fully Oriented, Alert, Normal Mood/Affect, Normal Response Integumentary: Yes: Normal Color, Warm Lymphatic: Yes: Within Normal Limits - Diagnostic (1) Opioid dependence with withdrawal Current Visit: Yes Status: Chronic (2) Nicotine dependence Current Visit: Yes Status: Chronic Qualifiers: Nicotine product type: cigarettes Substance use status: uncomplicated Qualified Code(s): F17.210 - Nicotine dependence, cigarettes, uncomplicated Cleared for Admission [facility] - Detox or Rehab [facility] Level of Care: Medically Managed Detox Regimen/Protocol: Methadone [facility] Breath Alcohol Content Breath Alcohol Content: 0 Urine Drug Screen - Results Drug Screen Negative: No Urine Drug Screen Results: OPI-Opiates, BZO-Benzodiazepines Inpatient Rehab Admission - Rehab Decision to Admit Inpatient rehab admission?: No
[2018-10-28] MEDS ORDERED: MAGNESIUM CITRATE 300 ML BOTTLE PO PRN (12:22)
[2018-10-28] MEDS ORDERED: MAGNESIUM HYDROX 2400MG/30ML ORAL SUSPENSION 30 ML CUP PO PRN (12:22)
[2018-10-28] MEDS ORDERED: MENTHOL/PHENOL 1 EACH UD MM PRN (12:22)
[2018-10-28] MEDS ORDERED: ACETAMINOPHEN 325 MG TABLET (FP) PO PRN (12:22)
[2018-10-28] MEDS ORDERED: IBUPROFEN 400 MG TABLET (FP) PO PRN (12:22)
[2018-10-28] MEDS ORDERED: cloNIDine HCL 0.1 MG TABLET PO PRN (12:22)
[2018-10-28] MEDS ORDERED: MAG HYDROX/AL HYDROX/SIMETH 30 ML UNIT-DOSE CUP PO PRN (12:22)
[2018-10-28] MEDS ORDERED: METHOCARBAMOL 500 MG TABLET PO PRN (12:22)
[2018-10-28] MEDS ORDERED: BISMUTH SUBSALICYLATE 524 MG/30 ML UD PO PRN (12:22)
[2018-10-28] MEDS ORDERED: METHADONE HCL 10 MG TABLET (FOR DETOX USE ONLY) PO ONE ×2 (13:15→23:00)
[2018-10-28] MEDS: NICOTINE 14 MG/24 HOURS TOPICAL PATCH TD SCH (13:45)
[2018-10-28] MEDS: THIAMINE HCL 100 MG TABLET (FP) PO SCH (23:48)
[2018-10-29] MEDS ORDERED: METHADONE HCL 10 MG TABLET (FOR DETOX USE ONLY) PO ONE (10:00)
[2018-10-29] MEDS: NICOTINE 14 MG/24 HOURS TOPICAL PATCH TD SCH (10:03)
[2018-10-29] MEDS: PRENATAL VITAMINS W/ FOLIC ACID TABLET (FP) PO SCH (10:03)
[2018-10-29 11:03] LABS: ALBUMIN 3.7 g/dl (3.4-5.0); ALK PHOS 58 U/L (45-117); ANION GAP 4 MMOL/L (8-16); BILIRUBIN,TOTAL 0.5 mg/dL (0.2-1); BLOOD UREA NITROGEN 13 mg/dL (7-18); CALCIUM 8.5 mg/dL (8.5-10.1); CHLORIDE 108 mmol/L (98-107); CO2 28 mmol/L (21-32); GLUCOSE,RANDOM 81 mg/dL (74-106); POTASSIUM 4.4 mmol/L (3.5-5.1); SGOT/AST 7 U/L (15-37); SGPT/ALT 22 U/L (13-61); SODIUM 141 mmol/L (136-145); TOT PROT 6.6 g/dl (6.4-8.2)
[2018-10-29 11:28] LABS: HEMATOCRIT 41.4 % (35.4-49); HEMOGLOBIN 14.1 GM/dL (11.7-16.9); MCH 30.3 pg (25.7-33.7); MEAN CELL VOLUME 89.3 fl (80-96); MEAN PLT VOLUME 10.2 fl (7.5-11.1); PLATELET COUNT 229 K/MM3 (134-434); RBC 4.64 M/mm3 (4.00-5.60); RDW 13.3 % (11.9-15.9)
--- NOTE | 2018-10-29 16:32 | PN ---
BHS COWS - Scale Resting Pulse: 0= [place] 80 or Below Sweatin= Chills/Flushing Restless Observation: 3= Extraneous Movement Pupil Size: 0= Normal to Room Light Bone or Joint Aches: 2= Severe Diffuse Aches Runny Nose/ Eye Tearin= Runny Nose/Eyes GI Upset > 30mins: 3= Vomiting/Diarrhea Tremor Observation of Outstretched Hands: 2= Slight Tremor Visible Yawning Observation: 0= None Anxiety or Irritability: 2=Irritable/Anxious Goose Flesh Skin: 0=Smooth Skin COWS Score: 15 BHS Progress Note (SOAP) Subjective: Legs hurting, stomachache, sweating, interrupted sleep Objective: 10/29/18 16:31 Last Vital Signs Temp Pulse Resp BP Pulse Ox 97.5 F L 64 18 123/74 10/29/18 14:12 10/29/18 14:12 10/29/18 14:12 10/29/18 14:12 Laboratory Tests 10/29/18 10/29/18 08:00 08:00 WBC 6.0 RBC 4.64 Hgb 14.1 Hct 41.4 MCV 89.3 MCH 30.3 MCHC 34.0 RDW 13.3 Plt Count 229 MPV 10.2 Sodium 141 Potassium 4.4 Chloride 108 H Carbon Dioxide 28 Anion Gap 4 L BUN 13 Creatinine 1.0 Creat Clearance w eGFR > 60 Random Glucose 81 Calcium 8.5 Total Bilirubin 0.5 AST 7 L ALT 22 Alkaline Phosphatase 58 Total Protein 6.6 Albumin 3.7 Labs reviewed Assessment: 10/29/18 16:31 Withdrawal symptoms Plan: Continue detox Encouraged PO water hydration
[2018-10-29] MEDS: THIAMINE HCL 100 MG TABLET (FP) PO SCH (22:22)
[2018-10-29] MEDS: MELATONIN 5 MG TABLETS PO PRN (22:22)
[2018-10-30] MEDS ORDERED: METHADONE HCL 10 MG TABLET (FOR DETOX USE ONLY) PO ONE (10:00)
[2018-10-30] MEDS: PRENATAL VITAMINS W/ FOLIC ACID TABLET (FP) PO SCH (10:10)
[2018-10-30] MEDS: NICOTINE 14 MG/24 HOURS TOPICAL PATCH TD SCH (10:11)
--- NOTE | 2018-10-30 13:26 | PN ---
BHS COWS - Scale Resting Pulse: 0= [place] 80 or Below Sweatin= Chills/Flushing Restless Observation: 1= Difficult to Sit Still Pupil Size: 0= Normal to Room Light Bone or Joint Aches: 1= Mild Discomfort Runny Nose/ Eye Tearin= Nasal Congestion GI Upset > 30mins: 1= Stomach Cramp Tremor Observation of Outstretched Hands: 0= None Yawning Observation: 1= 1-2x During Session Anxiety or Irritability: 2=Irritable/Anxious Goose Flesh Skin: 0=Smooth Skin COWS Score: 8 BHS Progress Note (SOAP) Subjective: Body Aches, Sweating, Stomach Cramping. Objective: PATIENT A & O X 3, OBSERVED AMBULATING ON UNIT. IN NO ACUTE DISTRESS. 10/30/18 13:26 Vital Signs Temperature 98.4 F 10/30/18 09:35 Pulse Rate 64 10/30/18 09:35 Respiratory Rate 18 10/30/18 09:35 Blood Pressure 129/79 10/30/18 09:35 O2 Sat by Pulse Oximetry (%) Laboratory Tests 10/29/18 10/29/18 10/29/18 08:00 08:00 08:00 WBC 6.0 RBC 4.64 Hgb 14.1 Hct 41.4 MCV 89.3 MCH 30.3 MCHC 34.0 RDW 13.3 Plt Count 229 MPV 10.2 Sodium 141 Potassium 4.4 Chloride 108 H Carbon Dioxide 28 Anion Gap 4 L BUN 13 Creatinine 1.0 Creat Clearance w eGFR > 60 Random Glucose 81 Calcium 8.5 Total Bilirubin 0.5 AST 7 L ALT 22 Alkaline Phosphatase 58 Total Protein 6.6 Albumin 3.7 RPR Titer Nonreactive LABS NOTED. Assessment: 10/30/18 13:27 WITHDRAWAL SYMPTOMS. Plan: CONTINUE DETOX. INCREASE DAILY PO FLUID INTAKE.
[2018-10-30] MEDS: THIAMINE HCL 100 MG TABLET (FP) PO SCH (21:57)
[2018-10-30] MEDS: MELATONIN 5 MG TABLETS PO PRN (21:57)
[2018-10-31] MEDS ORDERED: METHADONE HCL 10 MG TABLET (FOR DETOX USE ONLY) PO ONE (10:00)
[2018-10-31] MEDS: PRENATAL VITAMINS W/ FOLIC ACID TABLET (FP) PO SCH (10:08)
[2018-10-31] MEDS: NICOTINE 14 MG/24 HOURS TOPICAL PATCH TD SCH (10:08)
--- NOTE | 2018-10-31 10:24 | PN ---
BHS Progress Note (SOAP) Subjective: alert,irritable,anxious,interrupted sleep,pain in the body and back Objective: 10/31/18 10:23 Vital Signs Temperature 97.7 F 10/31/18 07:17 Pulse Rate 57 L 10/31/18 07:17 Respiratory Rate 18 10/31/18 07:17 Blood Pressure 115/56 L 10/31/18 07:17 O2 Sat by Pulse Oximetry (%) Assessment: 10/31/18 10:23 withdrawal symptom Plan: continue detox,discharge in am
[2018-10-31] MEDS: THIAMINE HCL 100 MG TABLET (FP) PO SCH (22:21)
[2018-10-31] MEDS: MELATONIN 5 MG TABLETS PO PRN (22:22)
[2018-11-01] MEDS ORDERED: METHADONE HCL 5 MG TABLET (FOR DETOX USE ONLY) PO ONE (06:00)
--- NOTE | 2018-11-01 08:49 | DS ---
[facility] Detox Discharge Summary Admission Date: 10/28/18 Discharge Date: 11/01/18 - History Present History: Cocaine Dependence, Opioid Dependence - Physical Exam Results Vital Signs: Vital Signs Temperature 97.7 F 11/01/18 07:16 Pulse Rate 60 11/01/18 07:16 Respiratory Rate 18 11/01/18 07:16 Blood Pressure 117/63 11/01/18 07:16 O2 Sat by Pulse Oximetry (%) - Treatment Hospital Course: Detox Protocol Followed, Detoxed Safely, Responded well, Discharged Condition Good, Rehab Referral Accepted - Medication Discharge Medications: Ambulatory Orders NK [No Known Home Medication] 09/22/18 - Diagnosis (1) Nicotine dependence Current Visit: Yes Status: Chronic Qualifiers: Nicotine product type: cigarettes Substance use status: uncomplicated Qualified Code(s): F17.210 - Nicotine dependence, cigarettes, uncomplicated (2) Opioid dependence with withdrawal Current Visit: Yes Status: Chronic (3) Cocaine dependence, uncomplicated Current Visit: Yes Status: Chronic - AMA Did Patient Leave Against Medical Advice: No (referred to [facility] rehab)
[2018-11-01 09:36] VITALS: BP 135/72; PULSE 73; TEMP 98.4
[2018-11-01] MEDS: NICOTINE 14 MG/24 HOURS TOPICAL PATCH TD SCH (09:44)
[2018-11-01] MEDS: PRENATAL VITAMINS W/ FOLIC ACID TABLET (FP) PO SCH (09:44)
== END 2018-11-01 12:54 | disposition home or self-care (01) | DRG 773 ==
LOC: YASAS 09:24 → Y6N 12:52
PROVIDERS: ADMIT Surgery; ATTEND Surgery
PROC: HZ2ZZZZ Detoxification Services for Substance Abuse Treatment (ICD-10-PCS; principal; 2018-10-28)
DX: F11.23 Opioid dependence with withdrawal (principal); F14.20 Cocaine dependence, uncomplicated; F17.210 Nicotine dependence, cigarettes, uncomplicated
CPT/HCPCS: 36415; 80053; 85027; 86593; J0735

== ENCOUNTER 2018-11-26 07:59 | Inpatient (IN) | payer OTHER ==
[2018-11-26 08:46] VITALS: BMI 23.7
--- NOTE | 2018-11-26 09:12 | HP ---
COWS - Scale Resting Pulse: 0= [place] 80 or Below Sweatin=Flushed/Facial Moisture Restless Observation: 1= Difficult to Sit Still Pupil Size: 1= Pupils >than Normal Bone or Joint Aches: 1= Mild Discomfort Runny Nose/ Eye Tearin= Runny Nose/Eyes GI Upset > 30mins: 0= None Tremor Observation: 1= Tremor [place], Not Seen Yawning Observation: 2= >3x During Session Anxiety or Irritability: 2=Irritable/Anxious Goose Flesh Skin: 0=Smooth Skin COWS Score: 12 CIWA Score - Admission Criteria [facility] Guidelines: Admission for Medically Managed Detox: Requires at least one of the followin. CIWA greater than 12 2. Seizures within the past 24 hours 3. Delirium tremens within the past 24 hours 4. Hallucinations within the past 24 hours 5. Acute intervention needed for co occurring medical disorder 6. Acute intervention needed for co occurring psychiatric disorder 7. Severe withdrawal that cannot be handled at a lower level of care (continued vomiting, continued diarrhea, abnormal vital signs) requiring intravenous medication and/or fluids 8. Admission ROS [facility] Chief Complaint: " detox " Allergies/Adverse Reactions: Allergies Allergy/AdvReac Type Severity Reaction Status Date / Time No Known Allergies Allergy Verified 11/26/18 08:41 History of Present Illness: 38 yo male with hx of heroin (nasal) and nicotine dependence is here seeking detox, last detox [facility] 10/28/18 -11/01/18, reports relapse soon after. Utox positive for FEN, MOP, BZO, denies benzodiazepine use. MIKE = 0.00. Reports for the past three weeks has been using 10 - 12 bogs of heroin per day. Denies medical or psychiatric problems. Denies suicidal / homicidal ideation or hx of suicide attempt. Reports overdose x 1 during December 2017. Denies hx of seizures. Denies prior tx with MAT. Encouraged patient to follow up with MAT upon detox completion. Exam Limitations: No Limitations - Ebola screening Have you traveled outside of the country in the last 21 days: No (N) Have you had contact with anyone from an Ebola affected area: No Do you have a fever: No - Review of Systems Constitutional: Chills (hot and colf flashes), Loss of Appetite, Changes in sleep (no sleep x 2 days), Unintentional Wgt. Loss (10 lbs in past months), Other (fatigue) EENT: reports: Nose Congestion Respiratory: reports: No Symptoms reported Cardiac: reports: No Symptoms Reported GI: reports: Constipated (last BM x 2 days) : reports: Other (hesitancy) Musculoskeletal: reports: Back Pain, Joint Pain Integumentary: reports: No Symptoms Reported Neuro: reports: No Symptoms reported Endocrine: reports: Increased Thirst Hematology: reports: No Symptoms Reported Psychiatric: reports: Orientated x3, Anxious Patient History - Patient Medical History Hx Anemia: No Hx Asthma: No Hx Chronic Obstructive Pulmonary Disease (COPD): No Hx Cancer: No Hx Cardiac Disorders: No Hx Congestive Heart Failure: No Hx Hypertension: No Hx Hypercholesterolemia: No Hx Pacemaker: No HX Cerebrovascular Accident: No Hx Seizures: No Hx Dementia: No Hx Diabetes: No Hx Gastrointestinal Disorders: No Hx Liver Disease: No Hx Genitourinary Disorders: No Hx Sexually Transmitted Disorders: No Hx Renal Disease (ESRD): No Hx Thyroid Disease: No Hx Human Immunodeficiency Virus (HIV): No (2017 negative) Hx Hepatitis C: No Hx Depression: No Hx Suicide Attempt: No Hx Bipolar Disorder: No Hx Schizophrenia: No - Patient Surgical History Past Surgical History: No Hx Neurologic Surgery: No Hx Cataract Extraction: No Hx Cardiac Surgery: No Hx Lung Surgery: No Hx Breast Surgery: No Hx Breast Biopsy: No Hx Abdominal Surgery: No Hx Appendectomy: No Hx Cholecystectomy: No Hx Genitourinary Surgery: No Hx Section: No Hx Orthopedic Surgery: No Other Surgical History: deviated septum repair 2014, tubal ottotic drainage 2014 Anesthesia Reaction: No - PPD History Previous Implant?: No Documented Results: Negative w/proof Date: 06/21/18 Results: 0 mm PPD to be Administered?: No - Smoking Cessation Smoking history: Current every day smoker Have you smoked in the past 12 months: Yes Aproximately how many cigarettes per day: 20 Cigars Per Day: 0 Hx Chewing Tobacco Use: No Initiated information on smoking cessation: Yes 'Breaking Loose' booklet given: 11/26/18 - Substance & Tx. History Hx Alcohol Use: No Hx Substance Use: Yes Substance Use Type: Heroin Hx Substance Use Treatment: Yes (Last Detox [facility] -11/01/18) - Substances abused Heroin Substance route: Inhalation Frequency: Daily Amount used: 10 - 12 bags Age of first use: 21 Date of last use: 11/25/18 Family Disease History - Family Disease History Family Disease History: Other: Father (living, alcohol, crack), Mother (living - healthy), Brother (two - healthy), Sister (six - one uses heroin ), Daughter ( one age 17 - healthy) Admission Physical Exam [facility] - Vital Signs Vital Signs: Vital Signs - 24 hr 11/26/18 08:37 Temperature 98 F Pulse Rate 63 Respiratory 18 Rate Blood Pressure 122/77 - Physical General Appearance: Yes: Disheveled HEENTM: Yes: EOMI, Hearing grossly Normal, Normal ENT Inspection, Pharynx Normal , Tm's normal, Rhinorrhea Respiratory: Yes: Chest Non-Tender, Lungs Clear, Normal Breath Sounds, No Respiratory Distress, No Accessory Muscle Use Neck: Yes: Within Normal Limits Breast: Yes: Breast Exam Deferred Cardiology: Yes: Regular Rhythm, Regular Rate Abdominal: Yes: Within Normal Limits Genitourinary: Yes: Within Normal Limits Back: Yes: Normal Inspection Musculoskeletal: Yes: full range of Motion, Gait Steady, Pelvis Stable, Muscle Pain (b/l lower extremites no signs of trauma or injury) Extremities: Yes: Normal Capillary Refill, Normal Inspection, Normal Range of Motion, Non-Tender Neurological: Yes: agile business analyst II-XII NML intact, Fully Oriented, Alert, Motor Strength 5/5, Depressed Affect Integumentary: Yes: Normal Color, Warm, Diaphoresis Lymphatic: Yes: Within Normal Limits - Diagnostic (1) Nicotine dependence Current Visit: Yes Status: Chronic Qualifiers: Nicotine product type: cigarettes Substance use status: uncomplicated Qualified Code(s): F17.210 - Nicotine dependence, cigarettes, uncomplicated (2) Opioid dependence with withdrawal Current Visit: Yes Status: Chronic Cleared for Admission [facility] - Detox or Rehab [facility] Level of Care: Medically Managed Detox Regimen/Protocol: Methadone Inpatient Rehab Admission - Rehab Decision to Admit Inpatient rehab admission?: No
[2018-11-26] MEDS ORDERED: IBUPROFEN 400 MG TABLET (FP) PO PRN (09:29)
[2018-11-26] MEDS ORDERED: MAGNESIUM CITRATE 300 ML BOTTLE PO PRN (09:29)
[2018-11-26] MEDS ORDERED: MENTHOL/PHENOL 1 EACH UD MM PRN (09:29)
[2018-11-26] MEDS ORDERED: NICOTINE POLACRILEX 2 MG GUM BUC PRN (09:29)
[2018-11-26] MEDS ORDERED: MAG HYDROX/AL HYDROX/SIMETH 30 ML UNIT-DOSE CUP PO PRN (09:29)
[2018-11-26] MEDS ORDERED: ACETAMINOPHEN 325 MG TABLET (FP) PO PRN ×2 (09:29)
[2018-11-26] MEDS ORDERED: MAGNESIUM HYDROX 2400MG/30ML ORAL SUSPENSION 30 ML CUP PO PRN (09:29)
[2018-11-26] MEDS ORDERED: cloNIDine HCL 0.1 MG TABLET PO PRN (09:29)
[2018-11-26] MEDS ORDERED: METHADONE HCL 10 MG TABLET (FOR DETOX USE ONLY) PO ONE ×2 (10:00→23:00)
[2018-11-26] MEDS: PRENATAL VITAMINS W/ FOLIC ACID TABLET (FP) PO SCH (10:59)
[2018-11-26] MEDS: NICOTINE 21 MG/24 HOURS TOPICAL PATCH TD SCH (11:00)
[2018-11-26] MEDS: diazePAM 5 MG TABLET PO PRN ×2 (11:00→22:04)
[2018-11-26 21:01] LABS: EPI CELLS 0.7 /HPF (0-5); URINE APPEARANCE CLEAR; URINE BACTERIA 0.3 /hpf (NEGATIVE); URINE BILIRUBIN NEGATIVE (NEGATIVE); URINE CASTS 3 /hpf (0-8); URINE COLOR YELLOW; URINE GLUCOSE (UA) NEGATIVE (NEGATIVE); URINE KETONE NEGATIVE (NEGATIVE); URINE LEUK ESTERASE TRACE (NEGATIVE); URINE NITRITE NEGATIVE (NEGATIVE); URINE PROTEIN NEGATIVE (NEGATIVE); URINE RBC 1 /hpf (0-4); URINE WBC 1 /hpf (0-5)
[2018-11-26] MEDS: THIAMINE HCL 100 MG TABLET (FP) PO SCH (22:04)
--- NOTE | 2018-11-27 09:56 | PN ---
BHS COWS - Scale Resting Pulse: 0= [place] 80 or Below Sweatin= Chills/Flushing Restless Observation: 1= Difficult to Sit Still Pupil Size: 1= Pupils >than Normal Bone or Joint Aches: 2= Severe Diffuse Aches Runny Nose/ Eye Tearin= None GI Upset > 30mins: 1= Stomach Cramp Tremor Observation of Outstretched Hands: 1= Tremor [place], Not Seen Yawning Observation: 1= 1-2x During Session Anxiety or Irritability: 1=Feels Anxious/Irritable Goose Flesh Skin: 0=Smooth Skin COWS Score: 9 S Progress Note (SOAP) Subjective: patient is doing ok with the methadone detox regimen report feeling better today discuss medication assisted maintenance treatment program Objective: 11/27/18 09:56 Vital Signs Temperature 97.6 F 11/27/18 09:40 Pulse Rate 73 11/27/18 09:40 Respiratory Rate 20 11/27/18 09:40 Blood Pressure 100/68 11/27/18 09:40 O2 Sat by Pulse Oximetry (%) Laboratory Last Values Urine Color Yellow 11/26/18 09:41 Urine Appearance Clear 11/26/18 09:41 Urine pH 7.0 (5.0-8.0) 11/26/18 09:41 Ur Specific [place] 1.027 (1.010-1.035) 11/26/18 09:41 Urine Protein Negative (NEGATIVE) 11/26/18 09:41 Urine Glucose (UA) Negative (NEGATIVE) 11/26/18 09:41 Urine Ketones Negative (NEGATIVE) 11/26/18 09:41 Urine Blood Negative (NEGATIVE) 11/26/18 09:41 Urine Nitrite Negative (NEGATIVE) 11/26/18 09:41 Urine Bilirubin Negative (NEGATIVE) 11/26/18 09:41 Urine Urobilinogen 1.0 mg/dL (0.2-1.0) 11/26/18 09:41 Ur Leukocyte Esterase Trace (NEGATIVE) 11/26/18 09:41 Urine WBC (Auto) 1 /hpf (0-5) 11/26/18 09:41 Urine RBC (Auto) 1 /hpf (0-4) 11/26/18 09:41 Urine Casts (Auto) 3 /hpf (0-8) 11/26/18 09:41 U Epithel Cells (Auto) 0.7 /HPF (0-5) 11/26/18 09:41 Urine Bacteria (Auto) 0.3 /hpf (NEGATIVE) 11/26/18 09:41 lab pending Assessment: 11/27/18 09:58 opiate withdrawal sx Plan: continue detox
[2018-11-27] MEDS ORDERED: METHADONE HCL 10 MG TABLET (FOR DETOX USE ONLY) PO ONE (10:00)
[2018-11-27] MEDS: PRENATAL VITAMINS W/ FOLIC ACID TABLET (FP) PO SCH (10:07)
[2018-11-27] MEDS: NICOTINE 21 MG/24 HOURS TOPICAL PATCH TD SCH (10:08)
[2018-11-27 10:18] LABS: HEMATOCRIT 40.8 % (35.4-49); HEMOGLOBIN 13.6 GM/dL (11.7-16.9); MCH 29.7 pg (25.7-33.7); MCHC 33.3 g/dl (32.0-35.9); MEAN CELL VOLUME 89.1 fl (80-96); MEAN PLT VOLUME 10.2 fl (7.5-11.1); PLATELET COUNT 203 K/MM3 (134-434); RBC 4.57 M/mm3 (4.00-5.60); RDW 13.2 % (11.9-15.9); WHITE BLOOD COUNT 6.3 K/mm3 (4.0-10.0)
[2018-11-27 10:32] LABS: ALBUMIN 3.5 g/dl (3.4-5.0); ALK PHOS 56 U/L (45-117); ANION GAP 5 MMOL/L (8-16); BILIRUBIN,TOTAL 1.1 mg/dL (0.2-1); BLOOD UREA NITROGEN 15 mg/dL (7-18); CALCIUM 7.9 mg/dL (8.5-10.1); CHLORIDE 107 mmol/L (98-107); CO2 29 mmol/L (21-32); CREATININE 0.9 mg/dL (0.55-1.3); GLUCOSE,RANDOM 82 mg/dL (74-106); SGOT/AST 15 U/L (15-37); SGPT/ALT 19 U/L (13-61); SODIUM 141 mmol/L (136-145); TOT PROT 6.1 g/dl (6.4-8.2)
[2018-11-27] MEDS ORDERED: NICOTINE 14 MG/24 HOURS TOPICAL PATCH TD ONE (12:15)
[2018-11-27] MEDS: diazePAM 5 MG TABLET PO PRN (22:19)
[2018-11-27] MEDS: THIAMINE HCL 100 MG TABLET (FP) PO SCH (22:19)
[2018-11-27] MEDS: METHOCARBAMOL 500 MG TABLET PO PRN (22:20)
[2018-11-28] MEDS ORDERED: METHADONE HCL 10 MG TABLET (FOR DETOX USE ONLY) PO ONE (10:00)
[2018-11-28] MEDS: NICOTINE 14 MG/24 HOURS TOPICAL PATCH TD SCH (10:08)
[2018-11-28] MEDS: PRENATAL VITAMINS W/ FOLIC ACID TABLET (FP) PO SCH (10:08)
[2018-11-28] MEDS: METHOCARBAMOL 500 MG TABLET PO PRN ×2 (12:20→22:26)
[2018-11-28] MEDS: diazePAM 5 MG TABLET PO PRN (12:20)
--- NOTE | 2018-11-28 14:20 | PN ---
BHS COWS - Scale Resting Pulse: 0= [place] 80 or Below Sweatin= Chills/Flushing Restless Observation: 0= Sits Still Pupil Size: 0= Normal to Room Light Bone or Joint Aches: 1= Mild Discomfort Runny Nose/ Eye Tearin= Nasal Congestion GI Upset > 30mins: 1= Stomach Cramp Tremor Observation of Outstretched Hands: 0= None Yawning Observation: 1= 1-2x During Session Anxiety or Irritability: 0= None Goose Flesh Skin: 0=Smooth Skin COWS Score: 5 BHS Progress Note (SOAP) Subjective: feeling ok today social with peers in day room Objective: 11/28/18 14:17 Laboratory Last Values WBC 6.3 K/mm3 (4.0-10.0) 11/27/18 07:00 RBC 4.57 M/mm3 (4.00-5.60) 11/27/18 07:00 Hgb 13.6 GM/dL (11.7-16.9) 11/27/18 07:00 Hct 40.8 % (35.4-49) 11/27/18 07:00 MCV 89.1 fl (80-96) 11/27/18 07:00 MCH 29.7 pg (25.7-33.7) 11/27/18 07:00 MCHC 33.3 g/dl (32.0-35.9) 11/27/18 07:00 RDW 13.2 % (11.9-15.9) 11/27/18 07:00 Plt Count 203 K/MM3 (134-434) 11/27/18 07:00 MPV 10.2 fl (7.5-11.1) 11/27/18 07:00 Sodium 141 mmol/L (136-145) 11/27/18 07:00 Potassium 4.0 mmol/L (3.5-5.1) 11/27/18 07:00 Chloride 107 mmol/L (98-107) 11/27/18 07:00 Carbon Dioxide 29 mmol/L (21-32) 11/27/18 07:00 Anion Gap 5 MMOL/L (8-16) L 11/27/18 07:00 BUN 15 mg/dL (7-18) 11/27/18 07:00 Creatinine 0.9 mg/dL (0.55-1.3) 11/27/18 07:00 Creat Clearance w eGFR 94.44 (>60) 11/27/18 07:00 Random Glucose 82 mg/dL (74-106) 11/27/18 07:00 Calcium 7.9 mg/dL (8.5-10.1) L 11/27/18 07:00 Total Bilirubin 1.1 mg/dL (0.2-1) H 11/27/18 07:00 AST 15 U/L (15-37) 11/27/18 07:00 ALT 19 U/L (13-61) 11/27/18 07:00 Alkaline Phosphatase 56 U/L (45-117) 11/27/18 07:00 Total Protein 6.1 g/dl (6.4-8.2) L 11/27/18 07:00 Albumin 3.5 g/dl (3.4-5.0) 11/27/18 07:00 Urine Color Yellow 11/26/18 09:41 Urine Appearance Clear 11/26/18 09:41 Urine pH 7.0 (5.0-8.0) 11/26/18 09:41 Ur Specific [place] 1.027 (1.010-1.035) 11/26/18 09:41 Urine Protein Negative (NEGATIVE) 11/26/18 09:41 Urine Glucose (UA) Negative (NEGATIVE) 11/26/18 09:41 Urine Ketones Negative (NEGATIVE) 11/26/18 09:41 Urine Blood Negative (NEGATIVE) 11/26/18 09:41 Urine Nitrite Negative (NEGATIVE) 11/26/18 09:41 Urine Bilirubin Negative (NEGATIVE) 11/26/18 09:41 Urine Urobilinogen 1.0 mg/dL (0.2-1.0) 11/26/18 09:41 Ur Leukocyte Esterase Trace (NEGATIVE) 11/26/18 09:41 Urine WBC (Auto) 1 /hpf (0-5) 11/26/18 09:41 Urine RBC (Auto) 1 /hpf (0-4) 11/26/18 09:41 Urine Casts (Auto) 3 /hpf (0-8) 11/26/18 09:41 U Epithel Cells (Auto) 0.7 /HPF (0-5) 11/26/18 09:41 Urine Bacteria (Auto) 0.3 /hpf (NEGATIVE) 11/26/18 09:41 lab noted Ca++ low Assessment: 11/28/18 14:19 opiate withdrawal Plan: continue detox
[2018-11-28] MEDS: CALCIUM 250MG/VIT-D 125 UNITS 1 COMBO TABLET PO SCH ×2 (15:18→22:24)
[2018-11-28] MEDS: BISMUTH SUBSALICYLATE 524 MG/30 ML UD PO PRN (21:21)
[2018-11-28] MEDS: MELATONIN 5 MG TABLETS PO PRN (22:23)
[2018-11-28] MEDS: THIAMINE HCL 100 MG TABLET (FP) PO SCH (22:23)
[2018-11-29] MEDS ORDERED: METHADONE HCL 10 MG TABLET (FOR DETOX USE ONLY) PO ONE (10:00)
[2018-11-29] MEDS: NICOTINE 14 MG/24 HOURS TOPICAL PATCH TD SCH (10:05)
[2018-11-29] MEDS: CALCIUM 250MG/VIT-D 125 UNITS 1 COMBO TABLET PO SCH ×2 (10:05→22:16)
[2018-11-29] MEDS: PRENATAL VITAMINS W/ FOLIC ACID TABLET (FP) PO SCH (10:05)
--- NOTE | 2018-11-29 11:05 | PN ---
[facility] COWS - Scale Resting Pulse: 0= SC 80 or Below Sweatin= Chills/Flushing Restless Observation: 0= Sits Still Pupil Size: 0= Normal to Room Light Bone or Joint Aches: 1= Mild Discomfort Runny Nose/ Eye Tearin= None GI Upset > 30mins: 0= None Tremor Observation of Outstretched Hands: 0= None Yawning Observation: 1= 1-2x During Session Anxiety or Irritability: 0= None Goose Flesh Skin: 0=Smooth Skin COWS Score: 3 BHS Progress Note (SOAP) Subjective: feeling better discuss medication assisted maintenance treatment program Objective: 11/29/18 11:04 Vital Signs Temperature 97.5 F L 11/29/18 09:04 Pulse Rate 67 11/29/18 09:04 Respiratory Rate 18 11/29/18 09:04 Blood Pressure 117/67 11/29/18 09:04 O2 Sat by Pulse Oximetry (%) Laboratory Last Values WBC 6.3 K/mm3 (4.0-10.0) 11/27/18 07:00 RBC 4.57 M/mm3 (4.00-5.60) 11/27/18 07:00 Hgb 13.6 GM/dL (11.7-16.9) 11/27/18 07:00 Hct 40.8 % (35.4-49) 11/27/18 07:00 MCV 89.1 fl (80-96) 11/27/18 07:00 MCH 29.7 pg (25.7-33.7) 11/27/18 07:00 MCHC 33.3 g/dl (32.0-35.9) 11/27/18 07:00 RDW 13.2 % (11.9-15.9) 11/27/18 07:00 Plt Count 203 K/MM3 (134-434) 11/27/18 07:00 MPV 10.2 fl (7.5-11.1) 11/27/18 07:00 Sodium 141 mmol/L (136-145) 11/27/18 07:00 Potassium 4.0 mmol/L (3.5-5.1) 11/27/18 07:00 Chloride 107 mmol/L (98-107) 11/27/18 07:00 Carbon Dioxide 29 mmol/L (21-32) 11/27/18 07:00 Anion Gap 5 MMOL/L (8-16) L 11/27/18 07:00 BUN 15 mg/dL (7-18) 11/27/18 07:00 Creatinine 0.9 mg/dL (0.55-1.3) 11/27/18 07:00 Creat Clearance w eGFR 94.44 (>60) 11/27/18 07:00 Random Glucose 82 mg/dL (74-106) 11/27/18 07:00 Calcium 7.9 mg/dL (8.5-10.1) L 11/27/18 07:00 Total Bilirubin 1.1 mg/dL (0.2-1) H 11/27/18 07:00 AST 15 U/L (15-37) 11/27/18 07:00 ALT 19 U/L (13-61) 11/27/18 07:00 Alkaline Phosphatase 56 U/L (45-117) 11/27/18 07:00 Total Protein 6.1 g/dl (6.4-8.2) L 11/27/18 07:00 Albumin 3.5 g/dl (3.4-5.0) 11/27/18 07:00 Urine Color Yellow 11/26/18 09:41 Urine Appearance Clear 11/26/18 09:41 Urine pH 7.0 (5.0-8.0) 11/26/18 09:41 Ur Specific [place] 1.027 (1.010-1.035) 11/26/18 09:41 Urine Protein Negative (NEGATIVE) 11/26/18 09:41 Urine Glucose (UA) Negative (NEGATIVE) 11/26/18 09:41 Urine Ketones Negative (NEGATIVE) 11/26/18 09:41 Urine Blood Negative (NEGATIVE) 11/26/18 09:41 Urine Nitrite Negative (NEGATIVE) 11/26/18 09:41 Urine Bilirubin Negative (NEGATIVE) 11/26/18 09:41 Urine Urobilinogen 1.0 mg/dL (0.2-1.0) 11/26/18 09:41 Ur Leukocyte Esterase Trace (NEGATIVE) 11/26/18 09:41 Urine WBC (Auto) 1 /hpf (0-5) 11/26/18 09:41 Urine RBC (Auto) 1 /hpf (0-4) 11/26/18 09:41 Urine Casts (Auto) 3 /hpf (0-8) 11/26/18 09:41 U Epithel Cells (Auto) 0.7 /HPF (0-5) 11/26/18 09:41 Urine Bacteria (Auto) 0.3 /hpf (NEGATIVE) 11/26/18 09:41 lab noted continue Ca++ supplement 11/29/18 11:05 Assessment: 11/29/18 11:06 opiate withdrawal sx Plan: continue detox
[2018-11-29] MEDS: BISMUTH SUBSALICYLATE 524 MG/30 ML UD PO PRN (21:05)
[2018-11-29] MEDS: MELATONIN 5 MG TABLETS PO PRN (22:16)
[2018-11-29] MEDS: METHOCARBAMOL 500 MG TABLET PO PRN (22:16)
[2018-11-29] MEDS: THIAMINE HCL 100 MG TABLET (FP) PO SCH (22:18)
[2018-11-30] MEDS ORDERED: METHADONE HCL 5 MG TABLET (FOR DETOX USE ONLY) PO ONE (06:00)
[2018-11-30] MEDS: NICOTINE 14 MG/24 HOURS TOPICAL PATCH TD SCH (10:12)
[2018-11-30] MEDS: CALCIUM 250MG/VIT-D 125 UNITS 1 COMBO TABLET PO SCH (10:12)
[2018-11-30] MEDS: PRENATAL VITAMINS W/ FOLIC ACID TABLET (FP) PO SCH (10:12)
--- NOTE | 2018-11-30 10:38 | DS ---
[facility] Detox Discharge Summary Admission Date: 11/26/18 Discharge Date: 11/30/18 - History Present History: Opioid Dependence Additional Comments: 38 years old male admitted on 11/26/18 for opiate withdrawal stabilization completed opiate detox regimen [facility] - Physical Exam Results Vital Signs: Vital Signs Temperature 97.1 F L 11/30/18 06:32 Pulse Rate 56 L 11/30/18 06:32 Respiratory Rate 18 11/30/18 06:32 Blood Pressure 115/74 11/30/18 06:32 O2 Sat by Pulse Oximetry (%) Pertinent Admission Physical Exam Findings: opiate withdrawal sx Laboratory Last Values WBC 6.3 K/mm3 (4.0-10.0) 11/27/18 07:00 RBC 4.57 M/mm3 (4.00-5.60) 11/27/18 07:00 Hgb 13.6 GM/dL (11.7-16.9) 11/27/18 07:00 Hct 40.8 % (35.4-49) 11/27/18 07:00 MCV 89.1 fl (80-96) 11/27/18 07:00 MCH 29.7 pg (25.7-33.7) 11/27/18 07:00 MCHC 33.3 g/dl (32.0-35.9) 11/27/18 07:00 RDW 13.2 % (11.9-15.9) 11/27/18 07:00 Plt Count 203 K/MM3 (134-434) 11/27/18 07:00 MPV 10.2 fl (7.5-11.1) 11/27/18 07:00 Sodium 141 mmol/L (136-145) 11/27/18 07:00 Potassium 4.0 mmol/L (3.5-5.1) 11/27/18 07:00 Chloride 107 mmol/L (98-107) 11/27/18 07:00 Carbon Dioxide 29 mmol/L (21-32) 11/27/18 07:00 Anion Gap 5 MMOL/L (8-16) L 11/27/18 07:00 BUN 15 mg/dL (7-18) 11/27/18 07:00 Creatinine 0.9 mg/dL (0.55-1.3) 11/27/18 07:00 Creat Clearance w eGFR 94.44 (>60) 11/27/18 07:00 Random Glucose 82 mg/dL (74-106) 11/27/18 07:00 Calcium 7.9 mg/dL (8.5-10.1) L 11/27/18 07:00 Total Bilirubin 1.1 mg/dL (0.2-1) H 11/27/18 07:00 AST 15 U/L (15-37) 11/27/18 07:00 ALT 19 U/L (13-61) 11/27/18 07:00 Alkaline Phosphatase 56 U/L (45-117) 11/27/18 07:00 Total Protein 6.1 g/dl (6.4-8.2) L 11/27/18 07:00 Albumin 3.5 g/dl (3.4-5.0) 11/27/18 07:00 Urine Color Yellow 11/26/18 09:41 Urine Appearance Clear 11/26/18 09:41 Urine pH 7.0 (5.0-8.0) 11/26/18 09:41 Ur Specific [place] 1.027 (1.010-1.035) 11/26/18 09:41 Urine Protein Negative (NEGATIVE) 11/26/18 09:41 Urine Glucose (UA) Negative (NEGATIVE) 11/26/18 09:41 Urine Ketones Negative (NEGATIVE) 11/26/18 09:41 Urine Blood Negative (NEGATIVE) 11/26/18 09:41 Urine Nitrite Negative (NEGATIVE) 11/26/18 09:41 Urine Bilirubin Negative (NEGATIVE) 11/26/18 09:41 Urine Urobilinogen 1.0 mg/dL (0.2-1.0) 11/26/18 09:41 Ur Leukocyte Esterase Trace (NEGATIVE) 11/26/18 09:41 Urine WBC (Auto) 1 /hpf (0-5) 11/26/18 09:41 Urine RBC (Auto) 1 /hpf (0-4) 11/26/18 09:41 Urine Casts (Auto) 3 /hpf (0-8) 11/26/18 09:41 U Epithel Cells (Auto) 0.7 /HPF (0-5) 11/26/18 09:41 Urine Bacteria (Auto) 0.3 /hpf (NEGATIVE) 11/26/18 09:41 lab noted - Treatment Hospital Course: Detox Protocol Followed, Detoxed Safely, Responded well, Discharged Condition Good, Rehab Referral Accepted Patient has Accepted a Rehab Referral to: [facility] - Medication Discharge Medications: Ambulatory Orders NK [No Known Home Medication] 09/22/18 - Diagnosis (1) Hypocalcemia Current Visit: Yes Status: Chronic (2) Opioid dependence with withdrawal Current Visit: Yes Status: Acute - AMA Did Patient Leave Against Medical Advice: No
[2018-11-30 11:34] VITALS: BP 106/70; PULSE 70; TEMP 98.2
== END 2018-11-30 12:49 | disposition other institution (70) | DRG 773 ==
LOC: YASAS 07:59 → Y3N 09:25
PROVIDERS: ADMIT Surgery; ATTEND Surgery
PROC: HZ2ZZZZ Detoxification Services for Substance Abuse Treatment (ICD-10-PCS; principal; 2018-11-26)
DX: F11.23 Opioid dependence with withdrawal (principal); F17.210 Nicotine dependence, cigarettes, uncomplicated; E83.52 Hypercalcemia
CPT/HCPCS: 36415; 80053; 81003; 85027

== ENCOUNTER 2018-11-30 12:54 | Inpatient (IN) | payer OTHER ==
--- NOTE | 2018-11-30 10:41 | HP ---
[facility] Rehab Assess/Revision - Admission History Admitted to Rehab from: [facility] Date of Admission to Rehab: 11/30/18 - Findings Detox History & Physical reviewed: Yes Concur with findings: Yes Comments/Additional Findings: transferred from detox to rehab admission as per protocol Inpatient Rehab Admission - Rehab Decision to Admit Inpatient rehab admission?: Yes - Initial Determination Are CD services needed?: Yes Free of communicable disease: Yes Not in need of hospitalization: Yes - Rehab Admission Criteria Previous failed treatment: Yes Poor recovery environment: Yes Comorbidities: Yes Lacks judgement: No Patient is meeting Inpatient Rehab admission criteria:: Yes
[~2018-11-30 12:54] MED LIST: ACETAMINOPHEN 325 MG TABLET (FP) PO PRN; IBUPROFEN 400 MG TABLET (FP) PO PRN; LOPERAMIDE HCL 2 MG CAPSULE PO PRN; MAG HYDROX/AL HYDROX/SIMETH 30 ML UNIT-DOSE CUP PO PRN; MAGNESIUM CITRATE 300 ML BOTTLE PO PRN; MAGNESIUM HYDROX 2400MG/30ML ORAL SUSPENSION 30 ML CUP PO PRN; MENTHOL/PHENOL 1 EACH UD MM PRN; NICOTINE POLACRILEX 2 MG GUM BUC PRN; P-EPHED 60MG/TRIPROLIDI 2.5MG TABLET PO PRN; guaiFENesin 200 MG/10 ML 10 ML UNIT-DOSE CUPS PO PRN
[2018-11-30] MEDS: CALCIUM 250MG/VIT-D 125 UNITS 1 COMBO TABLET PO SCH (21:11)
[2018-11-30] MEDS: MELATONIN 5 MG TABLETS PO PRN (21:11)
[2018-11-30] MEDS: THIAMINE HCL 100 MG TABLET (FP) PO SCH (21:11)
[2018-12-01] MEDS: NICOTINE 14 MG/24 HOURS TOPICAL PATCH TD SCH (10:11)
[2018-12-01] MEDS: PRENATAL VITAMINS W/ FOLIC ACID TABLET (FP) PO SCH (10:11)
[2018-12-01] MEDS: CALCIUM 250MG/VIT-D 125 UNITS 1 COMBO TABLET PO SCH ×2 (10:11→21:12)
[2018-12-01 15:11] LABS: PH,URINE 8.5 (5.0-8.0); URINE APPEARANCE CLEAR; URINE BILIRUBIN NEGATIVE (NEGATIVE); URINE COLOR YELLOW; URINE GLUCOSE (UA) NEGATIVE (NEGATIVE); URINE KETONE NEGATIVE (NEGATIVE); URINE LEUK ESTERASE NEGATIVE (NEGATIVE); URINE NITRITE NEGATIVE (NEGATIVE); URINE PROTEIN NEGATIVE (NEGATIVE); URINE UROBILINOGEN 0.2 mg/dL (0.2-1.0)
[2018-12-01] MEDS: MELATONIN 5 MG TABLETS PO PRN (21:12)
[2018-12-01] MEDS: THIAMINE HCL 100 MG TABLET (FP) PO SCH (21:12)
[2018-12-02] MEDS: PRENATAL VITAMINS W/ FOLIC ACID TABLET (FP) PO SCH (09:43)
[2018-12-02] MEDS: NICOTINE 14 MG/24 HOURS TOPICAL PATCH TD SCH (09:43)
[2018-12-02] MEDS: CALCIUM 250MG/VIT-D 125 UNITS 1 COMBO TABLET PO SCH ×2 (09:43→21:04)
--- NOTE | 2018-12-02 11:44 | PN ---
S Progress Note Note: withdrawal with pain in the body and extremity,anxious Vital Signs Temperature 97.8 F 12/02/18 06:41 Pulse Rate 58 L 12/02/18 06:41 Respiratory Rate 18 12/02/18 06:41 Blood Pressure 122/80 12/02/18 06:41 O2 Sat by Pulse Oximetry (%) will give robaxin 500 mgs po qid prn for 72 hrs clonidine 0.1 mg po bid for 72 hrs to hold if systolic bp below 100
[2018-12-02] MEDS: cloNIDine HCL 0.1 MG TABLET PO SCH ×2 (12:16→21:04)
[2018-12-02] MEDS: METHOCARBAMOL 500 MG TABLET PO PRN ×2 (12:17→21:05)
[2018-12-02] MEDS: THIAMINE HCL 100 MG TABLET (FP) PO SCH (21:04)
[2018-12-03] MEDS: MELATONIN 5 MG TABLETS PO PRN ×2 (02:48→21:05)
[2018-12-03] MEDS: NICOTINE 14 MG/24 HOURS TOPICAL PATCH TD SCH (10:06)
[2018-12-03] MEDS: CALCIUM 250MG/VIT-D 125 UNITS 1 COMBO TABLET PO SCH ×2 (10:06→21:05)
[2018-12-03] MEDS: cloNIDine HCL 0.1 MG TABLET PO SCH ×2 (10:06→21:05)
[2018-12-03] MEDS: PRENATAL VITAMINS W/ FOLIC ACID TABLET (FP) PO SCH (10:06)
[2018-12-03] MEDS: THIAMINE HCL 100 MG TABLET (FP) PO SCH (21:05)
[2018-12-03] MEDS: METHOCARBAMOL 500 MG TABLET PO PRN (21:07)
[2018-12-04] MEDS: NICOTINE 14 MG/24 HOURS TOPICAL PATCH TD SCH (09:43)
[2018-12-04] MEDS: PRENATAL VITAMINS W/ FOLIC ACID TABLET (FP) PO SCH (09:43)
[2018-12-04] MEDS: CALCIUM 250MG/VIT-D 125 UNITS 1 COMBO TABLET PO SCH ×2 (09:43→21:09)
[2018-12-04] MEDS: cloNIDine HCL 0.1 MG TABLET PO SCH ×2 (09:44→21:10)
--- NOTE | 2018-12-04 12:24 | PN ---
[facility] Progress Note Note: PT C/O WITHDRAWAL SX DISCOMFORT AND REQUESTING TO GO ON SUBOXONE FOR MAT. Vital Signs - 24 hr 12/03/18 12/04/18 12/04/18 21:00 00:30 03:30 Temperature Pulse Rate 61 Respiratory 18 18 Rate Blood Pressure 125/74 12/04/18 12/04/18 07:07 10:00 Temperature 97.1 F L Pulse Rate 60 77 Respiratory 16 Rate Blood Pressure 118/78 121/75 PLAN:UDS TO BE DONE TODAY.
[2018-12-04] MEDS ORDERED: CYCLOBENZAPRINE HCL 10 MG TABLET (FP) PO SCH (14:00)
[2018-12-04] MEDS: SODIUM CHLORIDE NASAL SPRAY 44 ML BOTTLE NS SCH ×2 (14:38→21:10)
[2018-12-04] MEDS: THIAMINE HCL 100 MG TABLET (FP) PO SCH (21:10)
[2018-12-05] MEDS: SODIUM CHLORIDE NASAL SPRAY 44 ML BOTTLE NS SCH ×2 (06:28→13:50)
[2018-12-05 06:39] VITALS: TEMP 98
[2018-12-05] MEDS: PRENATAL VITAMINS W/ FOLIC ACID TABLET (FP) PO SCH (09:58)
[2018-12-05] MEDS: CALCIUM 250MG/VIT-D 125 UNITS 1 COMBO TABLET PO SCH (09:58)
[2018-12-05] MEDS: NICOTINE 14 MG/24 HOURS TOPICAL PATCH TD SCH (09:59)
[2018-12-05] MEDS: cloNIDine HCL 0.1 MG TABLET PO SCH (09:59)
[2018-12-05 10:51] VITALS: BP 126/72; PULSE 67
--- NOTE | 2018-12-05 11:00 | PN ---
[facility] Progress Note Note: PT CAME TO PROVIDER AND EXPRESSED DESIRE TO LEAVE TREATMENT TODAY STATING "I FEEL BETTER AND I'M GOING TO BE STAYING WITH MY FATHER IN [place], HE IS IN THE [place]. I'M NOT GONNA STAY WITH MY MOM. MY DAD WILL NOT LET ME DO ANY OF THAT STUFF". PT WAS REMINDED THE NEED TO STAY IN TREATMENT AND TO EXPLORE THE SUBOXONE MAT WHICH SCREENING HAD BEGUN. PT DECLINED REPEAT UDS. PREVIOUS TEST WAS (+)MTD AND (+)BENZO--PT IS POST DETOX TREATMENT. PT REPORTS WHEN HE GETS A HOLD OF HIS MOTHER HE WILL BE SIGNING OUT. PT ENCOURAGED TO SPEAK WITH COUNSELOR. ALL EFFORTS TO DISCOURAGE PT WAS UNSUCCESSFUL. PT WAS REFERRED TO [facility] IN [place] FOR A FOLLOW UP TREATMENT IF NEEDED. Vital Signs - 24 hr 12/05/18 12/05/18 12/05/18 00:30 03:30 06:38 Temperature 98.0 F Pulse Rate 59 L Respiratory 18 18 18 Rate Blood Pressure 130/74 12/05/18 10:00 Temperature Pulse Rate 67 Respiratory Rate Blood Pressure 126/72 NAD PLAN:PT SIGNED AMA FOLLOW UP WITH CD RECOMMENDATION GIVEN BY THE COUNSELOR.
== END 2018-12-05 13:55 | disposition left against medical advice (07) | DRG 770 ==
LOC: YASAS 12:54 → Y5N 12:55
PROVIDERS: ADMIT Neuromusculoskeletal Medicine & OMM; ATTEND Neuromusculoskeletal Medicine & OMM
PROC: HZ42ZZZ Group Counseling for Substance Abuse Treatment, Cognitive-Behavioral (ICD-10-PCS; principal; 2018-11-30)
DX: F11.23 Opioid dependence with withdrawal (principal); F14.20 Cocaine dependence, uncomplicated; F17.210 Nicotine dependence, cigarettes, uncomplicated
CPT/HCPCS: 81003; J0735

== ENCOUNTER 2020-12-03 08:53 | Inpatient (IN) | payer OTHER ==
[2020-12-03 10:00] VITALS: BMI 25.0
[2020-12-03] MEDS ORDERED: ACETAMINOPHEN 325 MG TABLET (FP) PO PRN (12:46)
[2020-12-03] MEDS ORDERED: MAG HYDROX/AL HYDROX/SIMETH 30 ML UNIT-DOSE CUP PO PRN (12:46)
[2020-12-03] MEDS ORDERED: LOPERAMIDE HCL 2 MG CAPSULE PO PRN (12:46)
[2020-12-03] MEDS ORDERED: P-EPHED 60MG/TRIPROLIDI 2.5MG TABLET PO PRN (12:46)
[2020-12-03] MEDS ORDERED: NICOTINE POLACRILEX 2 MG GUM BUC PRN (12:46)
[2020-12-03] MEDS ORDERED: IBUPROFEN 400 MG TABLET (FP) PO PRN (12:46)
[2020-12-03] MEDS ORDERED: guaiFENesin 200 MG/10 ML 10 ML UNIT-DOSE CUPS PO PRN (12:46)
[2020-12-03] MEDS ORDERED: NALOXONE (NARCAN) HCL 4 MG/0.1 ML SPRAY NS PRN (12:46)
[2020-12-03] MEDS ORDERED: MAGNESIUM CITRATE 300 ML BOTTLE PO PRN (12:46)
[2020-12-03] MEDS: PRENATAL VITAMINS W/ FOLIC ACID TABLET (FP) PO SCH (15:26)
[2020-12-03] MEDS: NICOTINE 7 MG/24 HOURS TOPICAL PATCH TD SCH (15:26)
[2020-12-03] MEDS: hydrOXYzine PAMOATE 25 MG CAPSULE (FP) PO SCH ×3 (15:26→21:20)
[2020-12-03 16:46] LABS: HEMATOCRIT 42.7 % (35.4-49); HEMOGLOBIN 14.1 GM/dL (11.7-16.9); MCH 29.8 pg (25.7-33.7); MCHC 33.1 g/dl (32.0-35.9); MEAN CELL VOLUME 89.9 fl (80-96); MEAN PLT VOLUME 9.7 fl (7.5-11.1); PLATELET COUNT 296 K/MM3 (134-434); RBC 4.75 M/mm3 (4.00-5.60); RDW 13.3 % (11.9-15.9)
[2020-12-03 16:57] LABS: ALBUMIN 4.1 g/dl (3.4-5.0); BLOOD UREA NITROGEN 17.2 mg/dL (7-18); CALCIUM 9.3 mg/dL (8.5-10.1)
[2020-12-03 17:00] LABS: CREATININE 1.2 mg/dL (0.55-1.3)
[2020-12-03 17:02] LABS: BILIRUBIN,TOTAL 0.3 mg/dL (0.2-1); TOT PROT 7.7 g/dl (6.4-8.2)
[2020-12-03 19:33] LABS: PH,URINE 5.5 (5.0-8.0); URINE APPEARANCE CLEAR; URINE BILIRUBIN NEGATIVE (NEGATIVE); URINE COLOR YELLOW; URINE GLUCOSE (UA) NEGATIVE (NEGATIVE); URINE KETONE NEGATIVE (NEGATIVE); URINE LEUK ESTERASE NEGATIVE (NEGATIVE); URINE NITRITE NEGATIVE (NEGATIVE); URINE PROTEIN TRACE (NEGATIVE)
[2020-12-03] MEDS ORDERED: BUPRENORPHINE/NALOXONE 8 MG/2 MG FILM (DETOX) SL ONE (20:00)
[2020-12-03] MEDS: THIAMINE HCL 100 MG TABLET (FP) PO SCH (21:19)
[2020-12-03] MEDS: MELATONIN 5 MG TABLETS PO SCH (21:19)
[2020-12-03] MEDS: OXYMETAZOLINE 0.05% NASAL SOLUTION 15 ML BOTTLE NS SCH (21:20)
[2020-12-04] MEDS: BUPRENORPHINE/NALOXONE 8 MG/2 MG FILM PACKET SL SCH ×2 (06:23→18:23)
[2020-12-04] MEDS: hydrOXYzine PAMOATE 25 MG CAPSULE (FP) PO SCH ×5 (06:23→22:00)
[2020-12-04] MEDS: NICOTINE 7 MG/24 HOURS TOPICAL PATCH TD SCH (10:29)
[2020-12-04] MEDS: PRENATAL VITAMINS W/ FOLIC ACID TABLET (FP) PO SCH (10:29)
[2020-12-04] MEDS: OXYMETAZOLINE 0.05% NASAL SOLUTION 15 ML BOTTLE NS SCH ×2 (10:30→21:48)
[2020-12-04] MEDS: MELATONIN 5 MG TABLETS PO SCH (21:59)
[2020-12-04] MEDS: THIAMINE HCL 100 MG TABLET (FP) PO SCH (22:00)
[2020-12-05] MEDS: BUPRENORPHINE/NALOXONE 8 MG/2 MG FILM PACKET SL SCH ×2 (06:26→17:16)
[2020-12-05] MEDS: hydrOXYzine PAMOATE 25 MG CAPSULE (FP) PO SCH (06:27)
[2020-12-05] MEDS: MAGNESIUM HYDROX 2400MG/30ML ORAL SUSPENSION 30 ML CUP PO PRN (06:27)
[2020-12-05] MEDS ORDERED: hydrOXYzine PAMOATE 25 MG CAPSULE (FP) PO PRN (09:06)
[2020-12-05] MEDS: OXYMETAZOLINE 0.05% NASAL SOLUTION 15 ML BOTTLE NS SCH ×2 (10:48→21:40)
[2020-12-05] MEDS: PRENATAL VITAMINS W/ FOLIC ACID TABLET (FP) PO SCH (10:48)
[2020-12-05] MEDS: NICOTINE 7 MG/24 HOURS TOPICAL PATCH TD SCH (10:48)
[2020-12-05] MEDS: DOCUSATE SODIUM 100 MG CAPSULE (FP) PO SCH ×2 (14:54→21:40)
[2020-12-05] MEDS: MELATONIN 5 MG TABLETS PO SCH (21:40)
[2020-12-05] MEDS: THIAMINE HCL 100 MG TABLET (FP) PO SCH (21:41)
[2020-12-06] MEDS: BUPRENORPHINE/NALOXONE 8 MG/2 MG FILM PACKET SL SCH ×2 (06:33→17:05)
[2020-12-06] MEDS: DOCUSATE SODIUM 100 MG CAPSULE (FP) PO SCH ×3 (06:33→22:48)
[2020-12-06] MEDS: OXYMETAZOLINE 0.05% NASAL SOLUTION 15 ML BOTTLE NS SCH ×2 (10:21→22:48)
[2020-12-06] MEDS: PRENATAL VITAMINS W/ FOLIC ACID TABLET (FP) PO SCH (10:21)
[2020-12-06] MEDS: NICOTINE 7 MG/24 HOURS TOPICAL PATCH TD SCH (10:21)
[2020-12-06] MEDS: THIAMINE HCL 100 MG TABLET (FP) PO SCH (22:48)
[2020-12-06] MEDS: MELATONIN 5 MG TABLETS PO SCH (22:48)
[2020-12-07] MEDS: DOCUSATE SODIUM 100 MG CAPSULE (FP) PO SCH ×3 (06:09→21:33)
[2020-12-07] MEDS: BUPRENORPHINE/NALOXONE 8 MG/2 MG FILM PACKET SL SCH ×2 (06:09→16:36)
[2020-12-07 08:08] LABS: SARS-CoV-2 NAA Not Detected (Not Detected)
[2020-12-07] MEDS: OXYMETAZOLINE 0.05% NASAL SOLUTION 15 ML BOTTLE NS SCH ×2 (10:32→21:33)
[2020-12-07] MEDS: PRENATAL VITAMINS W/ FOLIC ACID TABLET (FP) PO SCH (10:32)
[2020-12-07] MEDS: NICOTINE 7 MG/24 HOURS TOPICAL PATCH TD SCH (10:32)
[2020-12-07] MEDS: MELATONIN 5 MG TABLETS PO SCH (21:32)
[2020-12-07] MEDS: THIAMINE HCL 100 MG TABLET (FP) PO SCH (21:32)
[2020-12-08] MEDS: DOCUSATE SODIUM 100 MG CAPSULE (FP) PO SCH (06:57)
[2020-12-08] MEDS: BUPRENORPHINE/NALOXONE 8 MG/2 MG FILM PACKET SL SCH ×2 (06:57→15:29)
[2020-12-08] MEDS: PRENATAL VITAMINS W/ FOLIC ACID TABLET (FP) PO SCH (10:13)
[2020-12-08] MEDS: OXYMETAZOLINE 0.05% NASAL SOLUTION 15 ML BOTTLE NS SCH ×2 (10:13→21:19)
[2020-12-08] MEDS: NICOTINE 7 MG/24 HOURS TOPICAL PATCH TD SCH (10:13)
[2020-12-08] MEDS: MAGNESIUM HYDROX 2400MG/30ML ORAL SUSPENSION 30 ML CUP PO PRN (18:00)
[2020-12-08] MEDS: MELATONIN 5 MG TABLETS PO SCH (21:18)
[2020-12-08] MEDS: THIAMINE HCL 100 MG TABLET (FP) PO SCH (21:18)
[2020-12-08] MEDS ORDERED: DOCUSATE SODIUM 100 MG CAPSULE (FP) PO SCH (22:00)
[2020-12-09] MEDS: BUPRENORPHINE/NALOXONE 8 MG/2 MG FILM PACKET SL SCH (06:35)
[2020-12-09 07:03] VITALS: BP 141/81; PULSE 61; TEMP 97.2
[2020-12-09] MEDS: PRENATAL VITAMINS W/ FOLIC ACID TABLET (FP) PO SCH (10:13)
[2020-12-09] MEDS: NICOTINE 7 MG/24 HOURS TOPICAL PATCH TD SCH (10:13)
[2020-12-09] MEDS: OXYMETAZOLINE 0.05% NASAL SOLUTION 15 ML BOTTLE NS SCH (10:13)
== END 2020-12-09 11:23 | disposition home or self-care (01) | DRG 772 ==
LOC: YASAS 08:53 → Y3W 12:57
PROVIDERS: ADMIT Allergy & Immunology; ATTEND Allergy & Immunology
PROC: HZ42ZZZ Group Counseling for Substance Abuse Treatment, Cognitive-Behavioral (ICD-10-PCS; principal; 2020-12-03)
DX: F11.20 Opioid dependence, uncomplicated (principal); F14.20 Cocaine dependence, uncomplicated; F10.10 Alcohol abuse, uncomplicated; F17.210 Nicotine dependence, cigarettes, uncomplicated; H91.92 Unspecified hearing loss, left ear
CPT/HCPCS: 36415; 80053; 81003; 82962; 85027; 86780; 93005; 93010; C9803; U0003; U0005

== ENCOUNTER 2023-01-27 09:34 | Inpatient (IN) | payer OTHER ==
[2023-01-27 09:52] VITALS: BMI 23.6
[2023-01-27] MEDS ORDERED: NALOXONE HCL 0.4 MG/ML VIAL IM PRN (10:09)
[2023-01-27] MEDS ORDERED: LOPERAMIDE HCL 2 MG CAPSULE PO PRN (10:09)
[2023-01-27] MEDS ORDERED: BENZONATATE 200 MG CAPSULE PO PRN (10:09)
[2023-01-27] MEDS ORDERED: COLLOIDAL OATMEAL 1 BAR EACH TP PRN (10:09)
[2023-01-27] MEDS ORDERED: IBUPROFEN 600 MG TABLET (FP) PO PRN (10:09)
[2023-01-27] MEDS ORDERED: hydrOXYzine PAMOATE 25 MG CAPSULE (FP) PO PRN (10:09)
[2023-01-27] MEDS ORDERED: AMMONIUM LACTATE 12% LOTION 225 GM BOTTLE TP PRN (10:09)
[2023-01-27] MEDS ORDERED: NALOXONE HCL (KLOXXADO) 8 MG SPRAY NS PRN (10:09)
[2023-01-27] MEDS ORDERED: MAGNESIUM HYDROX 2400MG/30ML ORAL SUSPENSION 30 ML CUP PO PRN (10:09)
[2023-01-27] MEDS ORDERED: guaiFENesin 600 MG TABLET.ER (FP) PO PRN (10:09)
[2023-01-27] MEDS ORDERED: ACETAMINOPHEN 325 MG TABLET (FP) PO PRN (10:09)
[2023-01-27] MEDS ORDERED: BENZOCAINE/MENTHOL (CHLORASEPTIC ) LOZENGE MM PRN (10:09)
[2023-01-27] MEDS ORDERED: POLYETHYLENE GLYCOL (HEALTHYLAX) 3350 17 GM PACKET PO PRN (10:09)
[2023-01-27] MEDS ORDERED: NICOTINE 10 MG CARTRIDGE (INHALER) IH PRN (10:09)
[2023-01-27] MEDS ORDERED: MAG HYDROX/AL HYDROX/SIMETH 30 ML UNIT-DOSE CUP PO PRN (10:09)
[2023-01-27] MEDS ORDERED: IBUPROFEN 400 MG TABLET (FP) PO PRN (10:09)
[2023-01-27] MEDS ORDERED: PRENATAL VITAMINS W/ FOLIC ACID TABLET (FP) PO ONE (10:33)
[2023-01-27] MEDS: PRENATAL VITAMINS W/ FOLIC ACID TABLET (FP) PO SCH (10:35)
[2023-01-27] MEDS ORDERED: TUBERCULIN PPD 5 TU/0.1ML VIAL ID ONE (12:11)
[2023-01-27 15:11] LABS: HEMATOCRIT 40.4 % (35.4-49); HEMOGLOBIN 13.1 GM/dL (11.7-16.9); MCH 28.3 pg (25.7-33.7); MCHC 32.5 g/dl (32.0-35.9); MEAN CELL VOLUME 87.3 fl (80-96); MEAN PLT VOLUME 10.3 fl (7.5-11.1); PLATELET COUNT 261 10^3/uL (134-434); RBC 4.63 M/mm3 (4.00-5.60); RDW 13.5 % (11.9-15.9); WHITE BLOOD COUNT 9.6 K/mm3 (4.0-10.0)
[2023-01-27 15:20] LABS: POTASSIUM 3.9 mmol/L (3.5-5.1)
[2023-01-27 15:25] LABS: ALBUMIN 3.8 g/dl (3.4-5.0); BLOOD UREA NITROGEN 13.3 mg/dL (7-18)
[2023-01-27 15:27] LABS: CALCIUM 8.7 mg/dL (8.5-10.1)
[2023-01-27 15:29] LABS: TOT PROT 6.9 g/dl (6.4-8.2)
[2023-01-27 15:35] LABS: BILIRUBIN,TOTAL 0.6 mg/dL (0.2-1)
[2023-01-27 15:38] LABS: SYPHILIS W/ RPR CONF NON-REACTIVE (NONREACTIVE)
[2023-01-27 18:29] LABS: PH,URINE 6.5 (5.0-8.0); URINE APPEARANCE CLEAR; URINE BILIRUBIN NEGATIVE (NEGATIVE); URINE COLOR YELLOW; URINE GLUCOSE (UA) NEGATIVE (NEGATIVE); URINE KETONE TRACE (NEGATIVE); URINE LEUK ESTERASE NEGATIVE (NEGATIVE); URINE NITRITE NEGATIVE (NEGATIVE); URINE PROTEIN NEGATIVE (NEGATIVE)
[2023-01-27] MEDS: MELATONIN 5 MG TABLETS PO SCH (21:04)
[2023-01-27] MEDS: THIAMINE HCL 100 MG TABLET (FP) PO SCH (21:04)
[2023-01-27] MEDS: BUPRENORPHINE/NALOXONE 4 MG/1 MG FILM PACKET SL SCH (21:05)
[2023-01-28] MEDS: NICOTINE 14 MG/24 HOURS TOPICAL PATCH TD SCH (09:52)
[2023-01-28] MEDS: PRENATAL VITAMINS W/ FOLIC ACID TABLET (FP) PO SCH (09:52)
[2023-01-28] MEDS: BUPRENORPHINE/NALOXONE 4 MG/1 MG FILM PACKET SL SCH ×2 (09:53→21:14)
[2023-01-28] MEDS: THIAMINE HCL 100 MG TABLET (FP) PO SCH (21:14)
[2023-01-28] MEDS: MELATONIN 5 MG TABLETS PO SCH (21:14)
[2023-01-29] MEDS: PRENATAL VITAMINS W/ FOLIC ACID TABLET (FP) PO SCH (10:03)
[2023-01-29] MEDS: BUPRENORPHINE/NALOXONE 4 MG/1 MG FILM PACKET SL SCH ×2 (10:05→21:24)
[2023-01-29] MEDS: NICOTINE 14 MG/24 HOURS TOPICAL PATCH TD SCH (10:05)
[2023-01-29] MEDS ORDERED: FLUTICASONE PROP 0.05% 16 GM NASAL SPRAY NS SCH (15:00)
[2023-01-29] MEDS: FLUTICASONE PROP 0.05% 16 GM NASAL SPRAY NS SCH (19:17)
[2023-01-29] MEDS: MELATONIN 5 MG TABLETS PO SCH (21:23)
[2023-01-29] MEDS: THIAMINE HCL 100 MG TABLET (FP) PO SCH (21:24)
[2023-01-30] MEDS: PRENATAL VITAMINS W/ FOLIC ACID TABLET (FP) PO SCH (09:38)
[2023-01-30] MEDS: NICOTINE 14 MG/24 HOURS TOPICAL PATCH TD SCH (09:39)
[2023-01-30] MEDS: FLUTICASONE PROP 0.05% 16 GM NASAL SPRAY NS SCH (09:39)
[2023-01-30] MEDS: BUPRENORPHINE/NALOXONE 4 MG/1 MG FILM PACKET SL SCH ×2 (09:39→21:14)
[2023-01-30] MEDS: AMOX TR/POT CLAV 875MG/125MG TABLETS (FP) PO SCH (16:51)
[2023-01-30] MEDS: MELATONIN 5 MG TABLETS PO SCH (21:14)
[2023-01-30] MEDS: THIAMINE HCL 100 MG TABLET (FP) PO SCH (21:14)
[2023-01-31] MEDS: AMOX TR/POT CLAV 875MG/125MG TABLETS (FP) PO SCH ×2 (07:01→17:10)
[2023-01-31 07:21] VITALS: BP 116/68; PULSE 60; RESP 18; TEMP 97.3
[2023-01-31] MEDS: FLUTICASONE PROP 0.05% 16 GM NASAL SPRAY NS SCH (09:53)
[2023-01-31] MEDS: PRENATAL VITAMINS W/ FOLIC ACID TABLET (FP) PO SCH (09:54)
[2023-01-31] MEDS: NICOTINE 14 MG/24 HOURS TOPICAL PATCH TD SCH (09:54)
[2023-01-31] MEDS: BUPRENORPHINE/NALOXONE 4 MG/1 MG FILM PACKET SL SCH (09:54)
== END 2023-01-31 21:01 | disposition left against medical advice (07) | DRG 770 ==
LOC: YASAS 09:34 → Y5N 10:34
PROVIDERS: ADMIT Allergy & Immunology; ATTEND Psychiatry & Neurology Pain Medicine
PROC: HZ42ZZZ Group Counseling for Substance Abuse Treatment, Cognitive-Behavioral (ICD-10-PCS; principal; 2023-01-27)
DX: F11.20 Opioid dependence, uncomplicated (principal); F14.20 Cocaine dependence, uncomplicated; F17.210 Nicotine dependence, cigarettes, uncomplicated; F41.9 Anxiety disorder, unspecified; J32.9 Chronic sinusitis, unspecified; Z28.310 Unvaccinated for COVID-19; Z28.9 Immunization not carried out for unspecified reason
CPT/HCPCS: 36415; 80053; 81003; 85027; 86780; 86803; 87635; 87811